=== PATIENT | male | born 1950 | race African-American/Black ===

== ENCOUNTER 2024-06-06 20:25 | Inpatient (IN) | payer OTHER, MEDICAID, MEDICARE ==
[~2024-06-06] VITALS: Ht 170.2 cm; Wt 57.2 kg
[2024-06-06] MEDS: SODIUM CHLORIDE 0.9% 1,000 ML IV ONE (20:49)
[2024-06-06 21:30] LABS: DIFFERENTIAL COMMENT 1; HEMOGLOBIN. 8.9 g/dL (14.0-18.0); MEAN CORPUSCULAR HEMOGLOBIN 25.4 pg (28.0-32.0); MEAN CORPUSCULAR HGB CONC 30.6 g/dL (31.0-37.0); MEAN PLATELET VOLUME 9.5 fl (7.4-10.4); PLATELET 493 x1000/uL (130-400); RED BLOOD CELL COUNT 3.49 mill/uL (4.7-6.1); RED CELL DISTRIBUTION WIDTH 19.4 % (11.6-14.6); WHITE BLOOD COUNT 20.4 x1000/uL (4.5-11.0)
[2024-06-06 21:37] LABS: CHLORIDE 104 mEq/L (98-107); SODIUM 138 mEq/L (136-145)
[2024-06-06 21:38] LABS: CALCIUM 9.5 mg/dL (8.7-10.4); CARBON DIOXIDE 18 mEq/L (21-32)
[2024-06-06 21:43] LABS: GLUCOSE 113 mg/dL (70-105); UREA NITROGEN BLOOD 75 mg/dL (9-23)
[2024-06-06 21:44] LABS: AMMONIA < 17 uMol/L (<32); ETHANOL BLOOD < 10 mg/dL (<10)
[2024-06-06] MEDS ORDERED: VANCOMYCIN 1G PREMIX 200 ML IV ONE (21:45)
[2024-06-06] MEDS: PIPERACILLIN/TAZO 3.375G/50ML 50 ML IV ONE (21:45)
[2024-06-06 21:51] LABS: POTASSIUM 6.5 mEq/L (3.5-5.1)
[2024-06-06 21:52] LABS: TROPONIN I HIGH SENSITIVITY 144 ng/L (3.0-53)
[2024-06-06 21:53] LABS: ANISOCYTOSIS 1+; PLATELET ESTIMATE INCREASED
[2024-06-06 21:56] LABS: CREATINE KINASE 1714 IU/L (46-171)
[2024-06-06] MEDS: DEXTROSE 50% WATER 50ML SYRINGE IV NR (22:00)
[2024-06-06 22:10] VITALS: PULSE 80; RESP 20; O2SAT 94
[2024-06-06] MEDS: ALBUTEROL (0.083%) 2.5MG/3ML NEB HHN SCH (22:35)
[2024-06-06] MEDS ORDERED: MORPHINE SULFATE 2 MG/ML INJ (NOT FOR IM USE) IV PRN (23:00)
[2024-06-06] MEDS ORDERED: CLONIDINE 0.1MG TABLET PO PRN (23:00)
[2024-06-06] MEDS ORDERED: ONDANSETRON HCL 4MG/2ML INJ IV PRN (23:00)
[2024-06-06 23:43] LABS: BG BASE EXCESS -5.2 mmol/L (-2.0-3.0); BG CARBOXYHEMOGLOBIN 1.5 % (0.5-1.5); BG DEOXYHEMOGLOBIN 6.2 % (0.0-5.0); BG FRACTION INSPIRED OXYGEN 21; BG HCO3 ACT 18.7 mmol/L (21.0-28.0); BG METHEMOGLOBIN 0.3 % (0.5-1.5); BG OXYGEN SATURATION 93.7 % (94.0-98.0); BG PCO2 30.1 mmHg (35.0-48.0); BG PO2 69.6 mmHg (83.0-108.0); BG SAMPLE SITE RIGHT RADIAL; BG TOTAL HEMOGLOBIN 8.6 g/dL (13.5-17.5); BG VENT MODE ROOM AIR
[2024-06-06] MEDS: SODIUM CHLORIDE 0.9% (SEPSIS BOLUS) IV ONE (23:55)
[2024-06-06] MEDS: CALCIUM GLUCONATE 1GM PREMIX 50 ML IV NR (23:55)
[2024-06-06] MEDS: INSULIN REGULAR (HUMULIN R) 1000UNITS/10ML VIAL IV NR (23:55)
[2024-06-06] MEDS: SODIUM BICARBONATE 8.4% 50MEQ/50ML SYR IV NR (23:56)
[2024-06-06] MEDS: VANCOMYCIN 1.25GM/250ML IV NR (23:56)
[2024-06-07 00:24] VITALS: BP 81/46; PULSE 82; RESP 24; TEMP 36.4
[2024-06-07 03:30] LABS: POTASSIUM 4.6 mEq/L (3.5-5.1)
[2024-06-07 03:32] LABS: CALCIUM 9.2 mg/dL (8.7-10.4)
[2024-06-07 03:35] LABS: HEMATOCRIT. 26.8 % (42.0-52.0); HEMOGLOBIN. 8.5 g/dL (14.0-18.0); MEAN CORPUSCULAR HEMOGLOBIN 25.1 pg (28.0-32.0); MEAN CORPUSCULAR HGB CONC 31.6 g/dL (31.0-37.0); MEAN CORPUSCULAR VOLUME 79.3 fL (80.0-94.0); MEAN PLATELET VOLUME 8.8 fl (7.4-10.4); PLATELET 370 x1000/uL (130-400); RED BLOOD CELL COUNT 3.38 mill/uL (4.7-6.1); RED CELL DISTRIBUTION WIDTH 18.3 % (11.6-14.6); WHITE BLOOD COUNT 15.8 x1000/uL (4.5-11.0)
[2024-06-07 03:36] LABS: CREATININE 4.5 mg/dL (0.6-1.3)
[2024-06-07 03:45] LABS: DIFFERENTIAL COMMENT 1
[2024-06-07 04:00] VITALS: BP 90/43; PULSE 82; RESP 19; TEMP 36.8; O2SAT 98
[2024-06-07 08:00] VITALS: BP 99/47; PULSE 87; RESP 18; TEMP 36.4; O2SAT 95
[2024-06-07] MEDS ORDERED: PANTOPRAZOLE SODIUM 40 MG/VIAL IV SCH (09:00)
[2024-06-07] MEDS: ASPIRIN 81MG EC TABLET PO SCH (09:50)
[2024-06-07] MEDS: PIPERACILLIN/TAZO 3.375G/50ML 50 ML IV SCH (09:50)
[2024-06-07] MEDS: HEPARIN 5000 UNITS/ML VIAL SUBCUT SCH (09:50)
[2024-06-07 09:53] LABS: BG CARBOXYHEMOGLOBIN 0.7 % (0.5-1.5); BG DEOXYHEMOGLOBIN 5.4 % (0.0-5.0); BG FRACTION INSPIRED OXYGEN 21; BG HCO3 ACT 17.9 mmol/L (21.0-28.0); BG METHEMOGLOBIN 0.3 % (0.5-1.5); BG OXYGEN SATURATION 94.5 % (94.0-98.0); BG OXYHEMOGLOBIN 93.6 % (94.0-98.0); BG PH 7.456 (7.350-7.450); BG PO2 70.4 mmHg (83.0-108.0); BG SAMPLE SITE LEFT RADIAL; BG VENT MODE ROOM AIR
[2024-06-07] MEDS: SODIUM CHLORIDE 0.9% 1,000 ML IV SCH (09:57)
[2024-06-07 11:12] LABS: ANISOCYTOSIS 2+; PLATELET ESTIMATE NORMAL
[2024-06-07 11:13] LABS: MICROCYTOSIS 1+
[2024-06-07 12:00] VITALS: BP 99/56; PULSE 89; RESP 18; TEMP 36.7; O2SAT 97
[2024-06-07 16:00] VITALS: BP 120/76; PULSE 89; RESP 18; TEMP 36.7; O2SAT 98
[2024-06-07 17:38] LABS: CLARITY URINE CLOUDY (CLEAR); COLOR URINE YELLOW (YELLOW); GLUCOSE URINE NEGATIVE (NEGATIVE); KETONES URINE TRACE (NEGATIVE); LEUKOCYTE ESTERASE URINE 2+ (NEGATIVE); NITRITE URINE NEGATIVE (NEGATIVE); OCCULT BLOOD URINE 3+ (NEGATIVE); PH URINE 5.5 (4.5-8.0); PROTEIN URINE 2+ (NEGATIVE); SPECIFIC GRAVITY URINE 1.017 (1.005-1.030); UROBILINOGEN URINE 0.2 E.U./dL (0.2-1.0)
[2024-06-07 17:42] LABS: TROPONIN I HIGH SENSITIVITY 130 ng/L (3.0-53)
[2024-06-07 17:43] LABS: CREATINE KINASE 1396 IU/L (46-171)
[2024-06-07 17:55] LABS: SQUAMOUS EPITHELIAL CELL URINE NONE SEEN /lpf (RARE/1+)
[2024-06-07 17:56] LABS: BACTERIA URINE 3+
[2024-06-07 20:00] VITALS: BP 118/55; PULSE 86; RESP 18; TEMP 36.6; O2SAT 100
[2024-06-08] VITALS: BP 116/59; PULSE 87; RESP 18; TEMP 36.4; O2SAT 95
[2024-06-08 03:58] VITALS: BP 96/58; PULSE 79; RESP 18; TEMP 36.2; O2SAT 97
[2024-06-08] MEDS: FAMOTIDINE 20MG/2ML VIAL IV SCH (09:50)
[2024-06-08 09:56] LABS: HEMATOCRIT. 22.6 % (42.0-52.0); HEMOGLOBIN. 7.1 g/dL (14.0-18.0); MEAN CORPUSCULAR HEMOGLOBIN 24.9 pg (28.0-32.0); MEAN CORPUSCULAR HGB CONC 31.5 g/dL (31.0-37.0); MEAN CORPUSCULAR VOLUME 79.2 fL (80.0-94.0); MEAN PLATELET VOLUME 9.1 fl (7.4-10.4); PLATELET 392 x1000/uL (130-400); RED BLOOD CELL COUNT 2.86 mill/uL (4.7-6.1); RED CELL DISTRIBUTION WIDTH 18.3 % (11.6-14.6); WHITE BLOOD COUNT 13.6 x1000/uL (4.5-11.0)
[2024-06-08 10:03] LABS: DIFFERENTIAL COMMENT 1
[2024-06-08 10:16] LABS: CHLORIDE 110 mEq/L (98-107); POTASSIUM 4.5 mEq/L (3.5-5.1); SODIUM 143 mEq/L (136-145)
[2024-06-08 10:17] LABS: CARBON DIOXIDE 22 mEq/L (21-32)
[2024-06-08 10:18] LABS: CALCIUM 7.7 mg/dL (8.7-10.4)
[2024-06-08 10:22] LABS: CREATININE 3.7 mg/dL (0.6-1.3); GLUCOSE 87 mg/dL (70-105)
[2024-06-08 10:23] LABS: UREA NITROGEN BLOOD 78 mg/dL (9-23)
[2024-06-08 10:25] LABS: PHOSPHORUS 3.1 mg/dL (2.5-4.9)
[2024-06-08 12:00] VITALS: BP 97/51; PULSE 51; RESP 16; TEMP 36.2; O2SAT 100
[2024-06-08 12:05] LABS: TOTAL IRON BINDING CAPACITY 598 ug/dl (250-425)
[2024-06-08] MEDS: VANCOMYCIN 1GM/200ML PMX (BAXTER) IV NR (12:38)
[2024-06-08 14:56] LABS: IRON 14 ug/dL (65-175)
[2024-06-08 15:24] LABS: ANISOCYTOSIS 1+
[2024-06-08 15:25] LABS: PLATELET ESTIMATE NORMAL
[2024-06-08 16:00] VITALS: BP 105/66; PULSE 58; RESP 16; TEMP 36.7; O2SAT 94
[2024-06-08 17:39] LABS: CREATINE KINASE 645 IU/L (46-171)
[2024-06-08 20:00] VITALS: BP 120/66; PULSE 85; RESP 20; TEMP 36.7; O2SAT 96
[2024-06-08] MEDS: TAMSULOSIN HCL 0.4MG SR CAPSULE PO SCH (21:47)
[2024-06-08 23:24] VITALS: PULSE 112; RESP 28; O2SAT 96
[2024-06-08 23:42] LABS: BG BASE EXCESS -4.2 mmol/L (-2.0-3.0); BG CARBOXYHEMOGLOBIN 0.8 % (0.5-1.5); BG DEOXYHEMOGLOBIN 1.9 % (0.0-5.0); BG FRACTION INSPIRED OXYGEN 44; BG HCO3 ACT 19.9 mmol/L (21.0-28.0); BG METHEMOGLOBIN 0.3 % (0.5-1.5); BG OXYGEN SATURATION 98.1 % (94.0-98.0); BG PCO2 32.5 mmHg (35.0-48.0); BG PH 7.405 (7.350-7.450); BG PO2 102.3 mmHg (83.0-108.0); BG SAMPLE SITE RIGHT RADIAL; BG TOTAL HEMOGLOBIN 8.8 g/dL (13.5-17.5); BG VENT MODE NASAL CANNULA
[2024-06-09] VITALS (12 sets, daily range): BP systolic 100–132; BP diastolic 60–89; PULSE 51–97; RESP 17–28; TEMP 35.8–36.9; O2SAT 95–100
[2024-06-09] MEDS: IPRATROPIUM/ALBUTEROL 0.5-3(2.5)MG/3ML NEB HHN SCH (00:52)
[2024-06-09 07:46] LABS: POTASSIUM 4.1 mEq/L (3.5-5.1)
[2024-06-09 07:47] LABS: CALCIUM 8.8 mg/dL (8.7-10.4)
[2024-06-09 07:52] LABS: CREATININE 3.5 mg/dL (0.6-1.3)
[2024-06-09 07:56] LABS: HEMATOCRIT. 24.6 % (42.0-52.0); MEAN CORPUSCULAR HEMOGLOBIN 25.4 pg (28.0-32.0); MEAN CORPUSCULAR HGB CONC 32.4 g/dL (31.0-37.0); MEAN CORPUSCULAR VOLUME 78.3 fL (80.0-94.0); PLATELET 412 x1000/uL (130-400); RED BLOOD CELL COUNT 3.14 mill/uL (4.7-6.1); RED CELL DISTRIBUTION WIDTH 18.5 % (11.6-14.6)
[2024-06-09 09:24] LABS: DIFFERENTIAL COMMENT 1
[2024-06-09] MEDS ORDERED: NON FORMULARY MED XX SCH (10:15)
[2024-06-09] MEDS: IRON SUCROSE COMPLEX 100 MG/5 ML ML IV SCH (12:28)
[2024-06-09] MEDS: SODIUM CHLORIDE 0.45% 1,000 ML IV SCH (12:32)
[2024-06-09 12:35] LABS: PROTEIN BODY FLUID 5.3 gm/dL
[2024-06-09] MEDS ORDERED: ACETAMINOPHEN 325MG TABLET PO PRN (13:45)
[2024-06-09 14:16] LABS: BODY FLUID WBC 6863 /cu mm (0-200)
[2024-06-09 14:17] LABS: BODY FLUID RBC 125 /cu mm (0-2000)
[2024-06-09 17:59] LABS: ANISOCYTOSIS 1+; MICROCYTOSIS 1+; PLATELET ESTIMATE INCREASED
[2024-06-09] MEDS ORDERED: BISACODYL 10MG SUPP PR PRN (21:00)
[2024-06-09] MEDS ORDERED: DIPHENHYDRAMINE 25MG CAPSULE PO PRN (21:00)
[2024-06-09] MEDS: ALLOPURINOL 300 MG TABLET PO SCH (21:08)
[2024-06-09] MEDS: DOCUSATE SODIUM 100MG CAPSULE PO SCH (21:08)
[2024-06-10] VITALS (75 sets, daily range): BP systolic 87–134; BP diastolic 40–82; PULSE 78–99; RESP 16–34; TEMP 34.7–37; O2SAT 94–100
[2024-06-10] MEDS: CHLORHEXIDINE GLUCONATE 4% EXTERNAL USE TOP SCH ×2 (05:06→07:00)
[2024-06-10] MEDS ORDERED: NICARDIPINE 40MG/200ML PREMIX 200 ML IV PRN (06:00)
[2024-06-10] MEDS ORDERED: AMINOCAPROIC ACID 5,000 MG in SODIUM CHLORIDE 0.9% 250 ML IV PRN (06:00)
[2024-06-10] MEDS ORDERED: INSULIN REGULAR 100 U/100 ML PREMIX IV PRN (06:00)
[2024-06-10] MEDS ORDERED: PAPAVERINE HCL 180MG in SODIUM CHLORIDE 0.9% 24ML IV NR (06:00)
[2024-06-10] MEDS ORDERED: CEFAZOLIN 2GM/100ML 100 ML IV NR (06:00)
[2024-06-10] MEDS ORDERED: NOREPINEPHRINE 8MG/250ML PMX 242 ML IV PRN (06:00)
[2024-06-10] MEDS ORDERED: DEL NIDO CARDIOPLEGIA 1,000 ML (PREMIX) IV PRN (06:00)
[2024-06-10] MEDS ORDERED: EPINEPHRINE 5 MG in DEXT 5% WATER 250 ML IV PRN (06:00)
[2024-06-10] MEDS ORDERED: DOBUTAMINE 250 MG/250 ML PREMIX IV PRN (06:00)
[2024-06-10] MEDS ORDERED: SKIN ADHESIVE 0.7 GM EA TOP ONE (06:52)
[2024-06-10] MEDS ORDERED: LIDOCAINE HCL/EPINEPHRINE 1%-EPI 1:100,000 20ML VIAL ONE (06:52)
[2024-06-10] MEDS ORDERED: BUPIVACAINE HCL/PF 0.5% (5MG/ML) 10ML ONE (06:52)
[2024-06-10] MEDS ORDERED: POLYMYXIN B SULFATE 500000 UNITS/VIAL ONE (06:52)
[2024-06-10 07:22] LABS: HEMATOCRIT. 23.2 % (42.0-52.0); HEMOGLOBIN. 7.4 g/dL (14.0-18.0); MEAN CORPUSCULAR HEMOGLOBIN 25.2 pg (28.0-32.0); MEAN CORPUSCULAR HGB CONC 31.8 g/dL (31.0-37.0); MEAN CORPUSCULAR VOLUME 79.2 fL (80.0-94.0); MEAN PLATELET VOLUME 8.7 fl (7.4-10.4); PLATELET 385 x1000/uL (130-400); RED BLOOD CELL COUNT 2.93 mill/uL (4.7-6.1); RED CELL DISTRIBUTION WIDTH 18.5 % (11.6-14.6); WHITE BLOOD COUNT 11.8 x1000/uL (4.5-11.0)
[2024-06-10 07:29] LABS: DIFFERENTIAL COMMENT 1
[2024-06-10] MEDS ORDERED: SUCCINYLCHOLINE CHLORIDE 200MG/10ML IV ONE (07:35)
[2024-06-10] MEDS ORDERED: ROCURONIUM BROMIDE 10MG/ML VIAL 5ML IV ONE (07:35)
[2024-06-10] MEDS ORDERED: DEXAMETHASONE 4MG/ML 1ML VIAL ONE (07:35)
[2024-06-10] MEDS ORDERED: PROPOFOL 200MG/20ML VIAL IV ONE (07:35)
[2024-06-10 07:57] LABS: CALCIUM 8.5 mg/dL (8.7-10.4)
[2024-06-10] MEDS ORDERED: ALBUMIN HUMAN 12.5G/250ML (5%) IV ONE (08:16)
[2024-06-10] MEDS ORDERED: SUGAMMADEX SODIUM 200MG/2ML VIAL IV ONE (08:21)
[2024-06-10] MEDS ORDERED: ACETAMINOPHEN 1000MG/100ML 100 ML IV ONE (08:21)
[2024-06-10] MEDS ORDERED: ALBUMIN HUMAN 25GM/100ML (25%) IV PRN (08:45)
[2024-06-10] MEDS ORDERED: ALBUMIN HUMAN 12.5G/250ML (5%) IV PRN (08:45)
[2024-06-10] MEDS ORDERED: ACETAMINOPHEN 325MG TABLET PO PRN (08:45)
[2024-06-10] MEDS ORDERED: ONDANSETRON HCL 4MG/2ML INJ IV PRN (08:45)
[2024-06-10 09:47] LABS: BG BASE EXCESS -7.2 mmol/L (-2.0-3.0); BG CARBOXYHEMOGLOBIN 1.7 % (0.5-1.5); BG DEOXYHEMOGLOBIN 1.2 % (0.0-5.0); BG FRACTION INSPIRED OXYGEN 70; BG HCO3 ACT 18.5 mmol/L (21.0-28.0); BG OXYGEN SATURATION 98.8 % (94.0-98.0); BG OXYHEMOGLOBIN 97.1 % (94.0-98.0); BG PCO2 38.1 mmHg (35.0-48.0); BG PH 7.305 (7.350-7.450); BG PO2 120.2 mmHg (83.0-108.0); BG SAMPLE SITE RIGHT BRACHIAL; BG TOTAL HEMOGLOBIN 7.1 g/dL (13.5-17.5); BG VENT MODE MASK - SIMPLE
[2024-06-10] MEDS: FAMOTIDINE 20MG/2ML VIAL IV SCH (10:10)
[2024-06-10] MEDS: DOCUSATE SODIUM 100MG CAPSULE PO SCH (10:11)
[2024-06-10] MEDS: CEFAZOLIN 1000MG PREMIX 50 ML IV SCH (10:50)
[2024-06-10 11:25] LABS: BODY FLUID MONOCYTES 1 %; BODY FLUID RBC 485 /cu mm (0-2000); BODY FLUID WBC 4975 /cu mm (0-200)
[2024-06-10] MEDS: IPRATROPIUM/ALBUTEROL 0.5-3(2.5)MG/3ML NEB HHN SCH (12:01)
[2024-06-10] MEDS ORDERED: NALOXONE HCL 0.4MG/ML VIAL IV PRN (13:15)
[2024-06-10] MEDS: VANCOMYCIN 1GM/200ML PMX (BAXTER) IV NR (13:33)
[2024-06-10 14:28] LABS: NUCLEATED RED BLOOD CELLS 1 /100 WBC
[2024-06-10 14:29] LABS: ANISOCYTOSIS 2+; MICROCYTOSIS 1+; PLATELET ESTIMATE NORMAL
[2024-06-11] VITALS (94 sets, daily range): BP systolic 110–158; BP diastolic 55–111; PULSE 72–97; RESP 14–35; TEMP 36.4–37; O2SAT 91–100
[2024-06-11 06:18] LABS: MEAN CORPUSCULAR HEMOGLOBIN 24.6 pg (28.0-32.0); MEAN CORPUSCULAR HGB CONC 30.9 g/dL (31.0-37.0); MEAN CORPUSCULAR VOLUME 79.6 fL (80.0-94.0); MEAN PLATELET VOLUME 8.5 fl (7.4-10.4); PLATELET 404 x1000/uL (130-400); RED BLOOD CELL COUNT 2.62 mill/uL (4.7-6.1); RED CELL DISTRIBUTION WIDTH 18.8 % (11.6-14.6)
[2024-06-11 06:45] LABS: CARBON DIOXIDE 22 mEq/L (21-32); CHLORIDE 110 mEq/L (98-107); POTASSIUM 4.4 mEq/L (3.5-5.1); SODIUM 144 mEq/L (136-145)
[2024-06-11 06:46] LABS: CALCIUM 8.6 mg/dL (8.7-10.4)
[2024-06-11 06:51] LABS: CREATININE 2.8 mg/dL (0.6-1.3); GLUCOSE 129 mg/dL (70-105); UREA NITROGEN BLOOD 51 mg/dL (9-23)
[2024-06-11 07:29] LABS: DIFFERENTIAL COMMENT 1
[2024-06-11 07:33] LABS: HEMOGLOBIN. 6.4 g/dL (14.0-18.0)
[2024-06-11 07:34] LABS: HEMATOCRIT. 20.8 % (42.0-52.0)
[2024-06-11 11:45] LABS: ANISOCYTOSIS 2+; HYPOCHROMASIA 1+; MICROCYTOSIS 1+; PLATELET ESTIMATE SLIGHTLY INCREASED; TARGET CELLS 1+
[2024-06-11] MEDS: MAGNESIUM 2 G PREMIX 50 ML IV NR (13:17)
[2024-06-11] MEDS: FUROSEMIDE 100MG/10ML VIAL IVP NR (18:35)
[2024-06-12] VITALS (7 sets, daily range): BP systolic 132–162; BP diastolic 73–99; PULSE 79–93; RESP 16–29; TEMP 36.4–36.7; O2SAT 90–97
[2024-06-12] MEDS: FUROSEMIDE 100MG/10ML VIAL IVP NR (09:36)
[2024-06-12 09:43] LABS: HEMATOCRIT. 30.5 % (42.0-52.0); HEMOGLOBIN. 10.1 g/dL (14.0-18.0); MEAN CORPUSCULAR HEMOGLOBIN 26.3 pg (28.0-32.0); MEAN CORPUSCULAR HGB CONC 32.9 g/dL (31.0-37.0); MEAN PLATELET VOLUME 8.2 fl (7.4-10.4); PLATELET 480 x1000/uL (130-400); RED BLOOD CELL COUNT 3.82 mill/uL (4.7-6.1); RED CELL DISTRIBUTION WIDTH 19.1 % (11.6-14.6); WHITE BLOOD COUNT 12.2 x1000/uL (4.5-11.0)
[2024-06-12 09:44] LABS: DIFFERENTIAL COMMENT 1
[2024-06-12 10:02] LABS: CHLORIDE 108 mEq/L (98-107); POTASSIUM 3.7 mEq/L (3.5-5.1); SODIUM 141 mEq/L (136-145)
[2024-06-12 10:03] LABS: CALCIUM 8.7 mg/dL (8.7-10.4); CARBON DIOXIDE 22 mEq/L (21-32)
[2024-06-12 10:08] LABS: CREATININE 2.5 mg/dL (0.6-1.3); GLUCOSE 76 mg/dL (70-105); UREA NITROGEN BLOOD 43 mg/dL (9-23)
[2024-06-12 10:10] LABS: PHOSPHORUS 3.3 mg/dL (2.5-4.9)
[2024-06-12 12:24] LABS: NUCLEATED RED BLOOD CELLS 1 /100 WBC
[2024-06-12 12:25] LABS: ANISOCYTOSIS 2+; HYPOCHROMASIA 1+; PLATELET ESTIMATE INCREASED
[2024-06-12] MEDS ORDERED: LORAZEPAM 2MG/ML UD SYRINGE IV PRN (21:30)
[2024-06-13] VITALS (11 sets, daily range): BP systolic 110–146; BP diastolic 63–80; PULSE 87–95; RESP 18–23; TEMP 36.1–36.4; O2SAT 94–99
[2024-06-13 07:01] LABS: HEMATOCRIT. 35.4 % (42.0-52.0); HEMOGLOBIN. 11.5 g/dL (14.0-18.0); MEAN CORPUSCULAR HEMOGLOBIN 26.4 pg (28.0-32.0); MEAN CORPUSCULAR HGB CONC 32.6 g/dL (31.0-37.0); MEAN CORPUSCULAR VOLUME 80.9 fL (80.0-94.0); MEAN PLATELET VOLUME 7.8 fl (7.4-10.4); PLATELET 555 x1000/uL (130-400); RED BLOOD CELL COUNT 4.38 mill/uL (4.7-6.1); WHITE BLOOD COUNT 12.8 x1000/uL (4.5-11.0)
[2024-06-13 07:08] LABS: DIFFERENTIAL COMMENT 1
[2024-06-13 07:11] LABS: CARBON DIOXIDE 26 mEq/L (21-32); CHLORIDE 104 mEq/L (98-107); POTASSIUM 3.6 mEq/L (3.5-5.1); SODIUM 143 mEq/L (136-145)
[2024-06-13 07:12] LABS: CALCIUM 9.2 mg/dL (8.7-10.4)
[2024-06-13 07:17] LABS: CREATININE 2.6 mg/dL (0.6-1.3); GLUCOSE 77 mg/dL (70-105); UREA NITROGEN BLOOD 45 mg/dL (9-23)
[2024-06-13] MEDS: DEXT 5%/0.45% NACL 1000ML 1,000 ML IV SCH (12:30)
[2024-06-13 14:50] LABS: PLATELET ESTIMATE INCREASED
[2024-06-13 14:51] LABS: ANISOCYTOSIS 2+; HYPOCHROMASIA 1+
[2024-06-13] MEDS: ACETYLCYSTEINE 200MG/ML 20% VIAL 4ML INH SCH (23:44)
[2024-06-14] VITALS (9 sets, daily range): BP systolic 102–128; BP diastolic 61–76; PULSE 85–95; RESP 16–26; TEMP 36.3–37.2; O2SAT 93–98
[2024-06-14 13:00] LABS: HEMATOCRIT. 37.2 % (42.0-52.0); MEAN CORPUSCULAR HEMOGLOBIN 26.3 pg (28.0-32.0); MEAN CORPUSCULAR HGB CONC 32.1 g/dL (31.0-37.0); MEAN CORPUSCULAR VOLUME 81.8 fL (80.0-94.0); MEAN PLATELET VOLUME 7.8 fl (7.4-10.4); PLATELET 555 x1000/uL (130-400); RED BLOOD CELL COUNT 4.55 mill/uL (4.7-6.1); RED CELL DISTRIBUTION WIDTH 19.7 % (11.6-14.6); WHITE BLOOD COUNT 19.4 x1000/uL (4.5-11.0)
[2024-06-14 13:01] LABS: DIFFERENTIAL COMMENT 1
[2024-06-14 13:06] LABS: POTASSIUM 3.6 mEq/L (3.5-5.1)
[2024-06-14 13:12] LABS: CREATININE 2.2 mg/dL (0.6-1.3)
[2024-06-14] MEDS ORDERED: GUAIFENESIN-DM 200MG-20MG/10ML UDC PO PRN (14:30)
[2024-06-14] MEDS: ACETAMINOPHEN 325MG TABLET PO PRN (15:20)
[2024-06-14] MEDS ORDERED: CEFTRIAXONE 1GM/50ML 50 ML IV SCH (16:00)
[2024-06-14 16:25] LABS: ANISOCYTOSIS 1+; PLATELET ESTIMATE INCREASED
[2024-06-14] MEDS: PIPERACILLIN/TAZO 3.375G/50ML 50 ML IV SCH (21:04)
[2024-06-14] MEDS: VANCOMYCIN 1.5GM PMX (XELLIA) 300 ML IV NR (21:33)
[2024-06-15] VITALS (9 sets, daily range): BP systolic 102–123; BP diastolic 54–69; PULSE 80–95; RESP 18–27; TEMP 36.3–36.7; O2SAT 91–100
[2024-06-15 10:54] LABS: HEMATOCRIT. 33.9 % (42.0-52.0); HEMOGLOBIN. 10.5 g/dL (14.0-18.0); MEAN CORPUSCULAR HEMOGLOBIN 25.9 pg (28.0-32.0); MEAN CORPUSCULAR HGB CONC 31.1 g/dL (31.0-37.0); MEAN CORPUSCULAR VOLUME 83.3 fL (80.0-94.0); MEAN PLATELET VOLUME 7.9 fl (7.4-10.4); PLATELET 548 x1000/uL (130-400); RED BLOOD CELL COUNT 4.07 mill/uL (4.7-6.1); RED CELL DISTRIBUTION WIDTH 19.7 % (11.6-14.6); WHITE BLOOD COUNT 24.8 x1000/uL (4.5-11.0)
[2024-06-15 11:16] LABS: DIFFERENTIAL COMMENT 1
[2024-06-15 11:27] LABS: POTASSIUM 3.8 mEq/L (3.5-5.1)
[2024-06-15 11:28] LABS: CALCIUM 8.7 mg/dL (8.7-10.4)
[2024-06-15 11:33] LABS: CREATININE 2.2 mg/dL (0.6-1.3)
[2024-06-15] MEDS: FUROSEMIDE 100MG/10ML VIAL IVP NR (12:25)
[2024-06-15 13:28] LABS: ANISOCYTOSIS 2+; PLATELET ESTIMATE INCREASED
[2024-06-15] MEDS ORDERED: VANCOMYCIN 750MG PREMIX 150 ML IV SCH (21:00)
[2024-06-16] VITALS (9 sets, daily range): BP systolic 87–105; BP diastolic 47–70; PULSE 69–92; RESP 16–28; TEMP 36.1–37.1; O2SAT 96–100
[2024-06-16 07:07] LABS: HEMATOCRIT. 31.8 % (42.0-52.0); HEMOGLOBIN. 10.3 g/dL (14.0-18.0); MEAN CORPUSCULAR HEMOGLOBIN 26.3 pg (28.0-32.0); MEAN CORPUSCULAR HGB CONC 32.5 g/dL (31.0-37.0); MEAN CORPUSCULAR VOLUME 81.1 fL (80.0-94.0); MEAN PLATELET VOLUME 7.7 fl (7.4-10.4); PLATELET 531 x1000/uL (130-400); RED BLOOD CELL COUNT 3.92 mill/uL (4.7-6.1); RED CELL DISTRIBUTION WIDTH 19.9 % (11.6-14.6); WHITE BLOOD COUNT 20.3 x1000/uL (4.5-11.0)
[2024-06-16 07:23] LABS: POTASSIUM 4.1 mEq/L (3.5-5.1)
[2024-06-16 07:24] LABS: CALCIUM 8.9 mg/dL (8.7-10.4)
[2024-06-16 07:29] LABS: CREATININE 2.4 mg/dL (0.6-1.3)
[2024-06-16 09:01] LABS: DIFFERENTIAL COMMENT 1
[2024-06-16] MEDS: IPRATROPIUM/ALBUTEROL 0.5-3(2.5)MG/3ML NEB HHN SCH (12:31)
[2024-06-16 16:32] LABS: ANISOCYTOSIS 1+; PLATELET ESTIMATE INCREASED
[2024-06-16] MEDS: MIDODRINE HCL 5MG TABLET PO SCH (23:13)
[2024-06-17] VITALS (10 sets, daily range): BP systolic 94–112; BP diastolic 50–77; PULSE 80–93; RESP 15–32; TEMP 36.6–37.3; O2SAT 94–100
[2024-06-17 06:56] LABS: HEMATOCRIT. 28.4 % (42.0-52.0); HEMOGLOBIN. 9.2 g/dL (14.0-18.0); MEAN CORPUSCULAR HEMOGLOBIN 26.5 pg (28.0-32.0); MEAN CORPUSCULAR HGB CONC 32.4 g/dL (31.0-37.0); MEAN CORPUSCULAR VOLUME 81.6 fL (80.0-94.0); MEAN PLATELET VOLUME 7.7 fl (7.4-10.4); PLATELET 487 x1000/uL (130-400); RED BLOOD CELL COUNT 3.48 mill/uL (4.7-6.1); RED CELL DISTRIBUTION WIDTH 20.2 % (11.6-14.6)
[2024-06-17 07:02] LABS: POTASSIUM 4.3 mEq/L (3.5-5.1)
[2024-06-17 07:03] LABS: CALCIUM 8.7 mg/dL (8.7-10.4)
[2024-06-17 07:07] LABS: CREATININE 2.5 mg/dL (0.6-1.3)
[2024-06-17 07:18] LABS: DIFFERENTIAL COMMENT 1
[2024-06-17 13:24] LABS: PLATELET ESTIMATE INCREASED
[2024-06-17 13:25] LABS: ANISOCYTOSIS 1+
[2024-06-17] MEDS: VANCOMYCIN 750MG PMX (XELLIA) 150 ML IV SCH (20:13)
[2024-06-18] VITALS (11 sets, daily range): BP systolic 89–111; BP diastolic 49–63; PULSE 80–95; RESP 16–21; TEMP 36.4–37.1; O2SAT 94–100
[2024-06-18 06:51] LABS: POTASSIUM 4.4 mEq/L (3.5-5.1)
[2024-06-18 06:52] LABS: CALCIUM 8.5 mg/dL (8.7-10.4)
[2024-06-18 06:53] LABS: HEMATOCRIT. 26.3 % (42.0-52.0); HEMOGLOBIN. 8.5 g/dL (14.0-18.0); MEAN CORPUSCULAR HEMOGLOBIN 26.5 pg (28.0-32.0); MEAN CORPUSCULAR HGB CONC 32.4 g/dL (31.0-37.0); MEAN CORPUSCULAR VOLUME 81.9 fL (80.0-94.0); MEAN PLATELET VOLUME 7.5 fl (7.4-10.4); PLATELET 462 x1000/uL (130-400); RED BLOOD CELL COUNT 3.21 mill/uL (4.7-6.1); RED CELL DISTRIBUTION WIDTH 20.1 % (11.6-14.6); WHITE BLOOD COUNT 15.8 x1000/uL (4.5-11.0)
[2024-06-18 06:56] LABS: CREATININE 2.4 mg/dL (0.6-1.3)
[2024-06-18 07:23] LABS: DIFFERENTIAL COMMENT 1
[2024-06-18 15:05] LABS: ANISOCYTOSIS 2+; HYPOCHROMASIA 1+; PLATELET ESTIMATE INCREASED
[2024-06-19] VITALS (9 sets, daily range): BP systolic 90–113; BP diastolic 57–68; PULSE 73–91; RESP 18–23; TEMP 36.1–36.7; O2SAT 97–100
[2024-06-19 08:07] LABS: POTASSIUM 4.9 mEq/L (3.5-5.1)
[2024-06-19 08:13] LABS: CREATININE 2.6 mg/dL (0.6-1.3)
== END 2024-06-19 18:43 | DRG 853 ==
LOC: ER 20:25 → 7WST 21:47 → EDBEDREQ 21:52 → EDBEDREQTM 21:52 → CVICU 06-10 09:06 → 3WST 06-11 23:26
PROVIDERS: ADMIT Internal Medicine; ATTEND Internal Medicine
PROC: 0W9B30Z Drainage of Left Pleural Cavity with Drainage Device, Percutaneous Approach (ICD-10-PCS; 2024-06-09)
PROC: 0BNL4ZZ Release Left Lung, Percutaneous Endoscopic Approach (ICD-10-PCS; principal; 2024-06-10)
PROC: 30233N1 Transfusion of Nonautologous Red Blood Cells into Peripheral Vein, Percutaneous Approach (ICD-10-PCS; 2024-06-11)
DX: A41.9 Sepsis, unspecified organism (principal); G93.41 Metabolic encephalopathy; J18.9 Pneumonia, unspecified organism; N17.0 Acute kidney failure with tubular necrosis; I21.4 Non-ST elevation (NSTEMI) myocardial infarction; J86.9 Pyothorax without fistula; N39.0 Urinary tract infection, site not specified; M62.82 Rhabdomyolysis; E87.20 Acidosis, unspecified; N13.8 Other obstructive and reflux uropathy; J91.8 Pleural effusion in other conditions classified elsewhere; E87.5 Hyperkalemia; E86.9 Volume depletion, unspecified; D50.9 Iron deficiency anemia, unspecified; N40.1 Benign prostatic hyperplasia with lower urinary tract symptoms; R80.9 Proteinuria, unspecified; E11.22 Type 2 diabetes mellitus with diabetic chronic kidney disease; N18.9 Chronic kidney disease, unspecified; Z55.6 Problems related to health literacy
CPT/HCPCS: 31720; 32555; 36415; 36600; 71045; 71250; 76604; 76770; 80048; 80202; 80320; 81003; 82140; 82375; 82550; 82728; 82805; 82962; 83540; 83550; 83605; 83615; 83735; 84100; 84145; 84153; 84484; 85025; 86850; 86900; 86920; 87070; 87075; 87116; 87210; 88108; 88312; 93005; 93306; 94070; 94640; 94664; 94667; 94760; 97116; 97161; 97166; 97530; 98960; 99291; A4606; J0330; J0610; J0665; J0690; J0696; J1100; J1644; J1815; J1940; J2004; J2543; J2704; J3370; J3475; J3490; J7030; J7608; P9016; P9041; G0480; J0131

== ENCOUNTER 2024-12-30 14:56 | Inpatient (IN) | payer OTHER, MEDICAID ==
[~2024-12-30] VITALS: Ht 175.3 cm; Wt 89.8 kg
[2024-12-30] MEDS: SODIUM CHLORIDE 0.9% 1,000 ML IV ONE ×2 (16:06→23:38)
[2024-12-30 16:14] LABS: HEMATOCRIT. 35.5 % (42.0-52.0); HEMOGLOBIN. 11.3 g/dL (14.0-18.0); MEAN PLATELET VOLUME 9.5 fl (7.4-10.4); PLATELET 184 x1000/uL (130-400); RED BLOOD CELL COUNT 4.03 mill/uL (4.7-6.1); RED CELL DISTRIBUTION WIDTH 18.7 % (11.6-14.6)
[2024-12-30 16:28] LABS: UREA NITROGEN BLOOD 40 mg/dL (9-23)
[2024-12-30 16:29] LABS: ETHANOL BLOOD < 10 mg/dL (<10)
[2024-12-30 16:30] LABS: ASPARTATE AMINOTRANSFERASE 52 IU/L (<34); BILIRUBIN DIRECT 0.2 mg/dL (<=3.0)
[2024-12-30 16:31] LABS: BILIRUBIN TOTAL 0.5 mg/dL (0.1-1.0); PROTEIN TOTAL 7.8 g/dL (6.0-8.3)
[2024-12-30 16:37] LABS: CREATININE 1.8 mg/dL (0.6-1.3)
[2024-12-30] MEDS: CEFTRIAXONE 1GM/50ML 50 ML IV SCH (16:52)
[2024-12-30] MEDS: SODIUM CHLORIDE 0.9% (SEPSIS BOLUS) IV ONE (16:53)
[2024-12-30 17:45] LABS: BAND% 9.0 % (1.0-6.0); LYMPHOCYTES % MANUAL 2.0 % (20.0-50.0); MONOCYTES % MANUAL 1.0 % (2.0-8.0); NEUTROPHILS % MANUAL 88.0 % (45.0-75.0)
[2024-12-30 17:46] LABS: PLATELET ESTIMATE NORMAL
[2024-12-30 19:15] LABS: CLARITY URINE CLEAR (CLEAR); COLOR URINE YELLOW (YELLOW); GLUCOSE URINE NEGATIVE (NEGATIVE); KETONES URINE TRACE (NEGATIVE); LEUKOCYTE ESTERASE URINE 2+ (NEGATIVE); NITRITE URINE NEGATIVE (NEGATIVE); OCCULT BLOOD URINE 3+ (NEGATIVE); PH URINE 6.0 (4.5-8.0); PROTEIN URINE 1+ (NEGATIVE); SPECIFIC GRAVITY URINE 1.019 (1.005-1.030); UROBILINOGEN URINE 1.0 E.U./dL (0.2-1.0)
[2024-12-30 19:42] LABS: BACTERIA URINE 2+; SQUAMOUS EPITHELIAL CELL URINE RARE /lpf (RARE/1+)
[2024-12-30 19:43] LABS: RBC URINE TNTC /hpf (0-2)
[2024-12-30] MEDS ORDERED: ZOLPIDEM TARTRATE 5MG TABLET PO PRN (22:30)
[2024-12-30] MEDS ORDERED: CLONIDINE 0.1MG TABLET PO PRN (22:30)
[2024-12-30] MEDS ORDERED: MAGNESIUM/ALUMINUM HYDROXIDE/SIMETHICONE 30ML UDC PO PRN (22:30)
[2024-12-30] MEDS ORDERED: ONDANSETRON HCL 4MG/2ML INJ IV PRN (22:30)
[2024-12-30] MEDS ORDERED: HYDROCODONE/ACETAMINOPHEN 5/325MG TABLET PO PRN (22:30)
[2024-12-30] MEDS: MEROPENEM 1G/100ML 100 ML IV NR (23:00)
[2024-12-31] VITALS (99 sets, daily range): BP systolic 46–166; BP diastolic 38–108; PULSE 47–122; RESP 8–43; TEMP 28.1–36.696; O2SAT 91–100
[2024-12-31] MEDS: DEXT 5%/0.45% NACL 1000ML 1,000 ML IV SCH (01:35)
[2024-12-31 02:08] LABS: BG BASE EXCESS -3.6 mmol/L (-2.0-3.0); BG CARBOXYHEMOGLOBIN 0.0 % (0.5-1.5); BG DEOXYHEMOGLOBIN 7.1 % (0.0-5.0); BG FRACTION INSPIRED OXYGEN 100; BG HCO3 ACT 23.9 mmol/L (21.0-28.0); BG METHEMOGLOBIN 0.3 % (0.5-1.5); BG OXYGEN SATURATION 92.9 % (94.0-98.0); BG OXYHEMOGLOBIN 92.6 % (94.0-98.0); BG PCO2 55.2 mmHg (35.0-48.0); BG PH 7.255 (7.350-7.450); BG PO2 74.1 mmHg (83.0-108.0); BG SAMPLE SITE LEFT RADIAL; BG TOTAL HEMOGLOBIN 11.0 g/dL (13.5-17.5); BG VENT MODE MASK - BIPAP; BG VENT RATE 14.0 set
[2024-12-31] MEDS: HALOPERIDOL LACTATE 5MG/ML VIAL IM NR (03:12)
[2024-12-31 07:21] LABS: HEMATOCRIT. 32.8 % (42.0-52.0); HEMOGLOBIN. 10.3 g/dL (14.0-18.0); MEAN PLATELET VOLUME 9.7 fl (7.4-10.4); PLATELET 159 x1000/uL (130-400); RED BLOOD CELL COUNT 3.65 mill/uL (4.7-6.1); RED CELL DISTRIBUTION WIDTH 19.2 % (11.6-14.6)
[2024-12-31 07:33] LABS: CREATININE 1.5 mg/dL (0.6-1.3); UREA NITROGEN BLOOD 37.0 mg/dL (9-23)
[2024-12-31] MEDS ORDERED: NOREPINEPHRINE 8MG/250ML PMX 250 ML IV PRN (08:00)
[2024-12-31 08:16] LABS: *AMPHETAMINES SCREEN URINE NEGATIVE (NEGATIVE); *BARBITURATES SCREEN URINE NEGATIVE (NEGATIVE); *BENZODIAZEPINES SCREEN URINE NEGATIVE (NEGATIVE)
[2024-12-31 08:17] LABS: *COCAINE SCREEN URINE PRESUMPTIVE POSITIVE (NEGATIVE); CANNABINOID URINE SCREEN NEGATIVE (NEGATIVE); ECSTASY MDMA SCREEN URINE NEGATIVE (NEGATIVE); METHADONE URINE SCREEN NEGATIVE (NEGATIVE); OPIATES URINE SCREEN NEGATIVE (NEGATIVE); PHENCYCLIDINE URINE SCREEN NEGATIVE (NEGATIVE)
[2024-12-31] MEDS ORDERED: NALOXONE HCL 0.4MG/ML VIAL IV PRN (08:30)
[2024-12-31] MEDS: NOREPINEPHRINE 8MG/250ML PMX 250 ML IV PRN (08:35)
[2024-12-31] MEDS ORDERED: ENOXAPARIN 30MG/0.3ML SYR SUBCUT SCH (09:00)
[2024-12-31 09:07] LABS: BG BASE EXCESS -6.0 mmol/L (-2.0-3.0); BG CARBOXYHEMOGLOBIN 0.6 % (0.5-1.5); BG DEOXYHEMOGLOBIN 15.4 % (0.0-5.0); BG FRACTION INSPIRED OXYGEN 100; BG HCO3 ACT 22.8 mmol/L (21.0-28.0); BG METHEMOGLOBIN 0.0 % (0.5-1.5); BG OXYGEN SATURATION 84.5 % (94.0-98.0); BG OXYHEMOGLOBIN 84.0 % (94.0-98.0); BG PCO2 60.9 mmHg (35.0-48.0); BG PH 7.191 (7.350-7.450); BG PO2 56.2 mmHg (83.0-108.0); BG SAMPLE SITE RIGHT BRACHIAL; BG TOTAL HEMOGLOBIN 12.2 g/dL (13.5-17.5); BG VENT MODE MASK - BIPAP; BG VENT RATE 20.0 set
[2024-12-31 09:30] LABS: BAND% 16.0 % (1.0-6.0); LYMPHOCYTES % MANUAL 3.0 % (20.0-50.0); NEUTROPHILS % MANUAL 81.0 % (45.0-75.0); PLATELET ESTIMATE NORMAL
[2024-12-31 10:05] LABS: TROPONIN I HIGH SENSITIVITY 7 ng/L (3.0-53)
[2024-12-31 11:28] LABS: BG BASE EXCESS -6.1 mmol/L (-2.0-3.0); BG CARBOXYHEMOGLOBIN 0.3 % (0.5-1.5); BG DEOXYHEMOGLOBIN 12.2 % (0.0-5.0); BG FRACTION INSPIRED OXYGEN 100; BG HCO3 ACT 19.3 mmol/L (21.0-28.0); BG METHEMOGLOBIN 0.3 % (0.5-1.5); BG OXYGEN SATURATION 87.7 % (94.0-98.0); BG OXYHEMOGLOBIN 87.2 % (94.0-98.0); BG PCO2 37.9 mmHg (35.0-48.0); BG PEEP (cmH2O) 5.0 cmH2O; BG PH 7.325 (7.350-7.450); BG PO2 55.7 mmHg (83.0-108.0); BG SAMPLE SITE RIGHT BRACHIAL; BG TIDAL VOLUME(mL) 450.0 mL; BG TOTAL HEMOGLOBIN 10.7 g/dL (13.5-17.5); BG VENT MODE VENT - AC; BG VENT RATE 20.0 set
[2024-12-31] MEDS: MEROPENEM 500MG/50ML 50 ML IV SCH (11:33)
[2024-12-31] MEDS: PANTOPRAZOLE SODIUM 40 MG/VIAL IV SCH (11:33)
[2024-12-31 12:14] LABS: CLARITY URINE CLOUDY (CLEAR); COLOR URINE ORANGE (YELLOW); GLUCOSE URINE NEGATIVE (NEGATIVE); KETONES URINE NEGATIVE (NEGATIVE); LEUKOCYTE ESTERASE URINE 3+ (NEGATIVE); NITRITE URINE NEGATIVE (NEGATIVE); OCCULT BLOOD URINE 3+ (NEGATIVE); PH URINE 5.5 (4.5-8.0); PROTEIN URINE 2+ (NEGATIVE); SPECIFIC GRAVITY URINE 1.018 (1.005-1.030); UROBILINOGEN URINE 1.0 E.U./dL (0.2-1.0)
[2024-12-31] MEDS: DEXTROSE 5% WATER 1,000 ML IV SCH (12:18)
[2024-12-31] MEDS: BLOOD SUGAR DIAGNOSTIC STRIP TEST SCH ×2 (12:50→23:51)
[2024-12-31 13:44] LABS: SQUAMOUS EPITHELIAL CELL URINE FEW /lpf (RARE/1+)
[2024-12-31 13:46] LABS: WBC URINE 50-100 /hpf (0-2)
[2024-12-31 13:47] LABS: BACTERIA URINE 3+; RBC URINE TNTC /hpf (0-2); YEAST URINE NONE SEEN
[2024-12-31] MEDS: ENOXAPARIN 60MG/0.6ML SYR SUBCUT SCH (14:25)
[2024-12-31] MEDS: INSULIN LISPRO 100 UNITS/ML SUBCUT SCH (14:29)
[2024-12-31] MEDS: DEXTROSE 50% WATER 50ML SYRINGE IV PRN (20:36)
[2024-12-31] MEDS: DEXMEDETOMIDINE 100 ML IV PRN (20:37)
[2024-12-31] MEDS: PHENYLEPHRINE 50MG/250ML PMX 250 ML IV PRN (20:38)
[2024-12-31] MEDS: LEVETIRACETAM 1000MG PREMIX 100 ML IV SCH (22:28)
[2024-12-31 22:37] LABS: TROPONIN I HIGH SENSITIVITY 86 ng/L (3.0-53)
[2024-12-31] MEDS: DEXT 10% WATER 1,000 ML IV SCH (23:06)
[2025-01-01] VITALS (102 sets, daily range): BP systolic 73–167; BP diastolic 48–95; PULSE 54–115; RESP 17–34; TEMP 36.6; O2SAT 92–100
[2025-01-01] MEDS: HYDROCORTISONE SOD SUCCINATE 100 MG/2 ML VIAL IV SCH (00:51)
[2025-01-01] MEDS: BLOOD SUGAR DIAGNOSTIC STRIP TEST SCH ×2 (02:06→20:00)
[2025-01-01] MEDS: VASOPRESSIN 20 UNIT in SODIUM CHLORIDE 0.9% 99 ML IV PRN (04:35)
[2025-01-01 05:24] LABS: INR 1.4
[2025-01-01 05:36] LABS: TRIGLYCERIDE 32 mg/dL (0-150); UREA NITROGEN BLOOD 37 mg/dL (9-23)
[2025-01-01 05:37] LABS: ASPARTATE AMINOTRANSFERASE 827 IU/L (<34); LDL CHOLESTEROL 33 mg/dL (5-100)
[2025-01-01 05:38] LABS: FOLIC ACID (FOLATE) SERUM 4.65 ng/mL (>5.38)
[2025-01-01 05:38] LABS: BILIRUBIN DIRECT 0.2 mg/dL (<=3.0); BILIRUBIN TOTAL 0.4 mg/dL (0.1-1.0); PHOSPHORUS 2.8 mg/dL (2.5-4.9); PROTEIN TOTAL 6.1 g/dL (6.0-8.3)
[2025-01-01 05:39] LABS: CREATININE 2.2 mg/dL (0.6-1.3)
[2025-01-01 06:04] LABS: BASOPHILS % 0.1 % (0.0-2.0); EOSINOPHILS % 0.1 % (0.0-5.0); HEMATOCRIT. 32.2 % (42.0-52.0); HEMOGLOBIN. 10.1 g/dL (14.0-18.0); LYMPHOCYTES % 1.4 % (20.0-50.0); MEAN PLATELET VOLUME 10.6 fl (7.4-10.4); MONOCYTES % 1.5 % (2.0-8.0); NEUTROPHILS % 96.9 % (40.0-76.0); PLATELET 146 x1000/uL (130-400); RED BLOOD CELL COUNT 3.58 mill/uL (4.7-6.1); RED CELL DISTRIBUTION WIDTH 19.1 % (11.6-14.6)
[2025-01-01 06:06] LABS: VITAMIN B12 SERUM > 2000 pg/mL (211-911)
[2025-01-01] MEDS: FOLIC ACID 1MG TABLET NG SCH (08:28)
[2025-01-01] MEDS: IRON SUCROSE COMPLEX 100 MG/5 ML ML IV SCH (08:28)
[2025-01-01] MEDS: LEVETIRACETAM 500MG PREMIX 100 ML IV SCH (08:29)
[2025-01-01 10:25] LABS: BG BASE EXCESS -9.6 mmol/L (-2.0-3.0); BG CARBOXYHEMOGLOBIN 0.2 % (0.5-1.5); BG DEOXYHEMOGLOBIN 1.6 % (0.0-5.0); BG FRACTION INSPIRED OXYGEN 100; BG HCO3 ACT 16.7 mmol/L (21.0-28.0); BG METHEMOGLOBIN 0.3 % (0.5-1.5); BG OXYGEN SATURATION 98.4 % (94.0-98.0); BG OXYHEMOGLOBIN 97.9 % (94.0-98.0); BG PCO2 38.2 mmHg (35.0-48.0); BG PEEP (cmH2O) 5.0 cmH2O; BG PH 7.259 (7.350-7.450); BG PO2 120.7 mmHg (83.0-108.0); BG SAMPLE SITE LEFT RADIAL; BG TIDAL VOLUME(mL) 450.0 mL; BG TOTAL HEMOGLOBIN 11.0 g/dL (13.5-17.5); BG VENT MODE VENT - AC; BG VENT RATE 20.0 set
[2025-01-01] MEDS: MAGNESIUM 2 G PREMIX 50 ML IV NR (10:58)
[2025-01-01] MEDS: ENOXAPARIN 60MG/0.6ML SYR SUBCUT SCH (12:48)
[2025-01-01] MEDS: VANCOMYCIN 1G PREMIX 200 ML IV SCH (17:12)
[2025-01-01 17:24] LABS: HEMATOCRIT. 30.5 % (42.0-52.0); HEMOGLOBIN. 9.5 g/dL (14.0-18.0); MEAN PLATELET VOLUME 10.8 fl (7.4-10.4); PLATELET 115 x1000/uL (130-400); RED BLOOD CELL COUNT 3.38 mill/uL (4.7-6.1); RED CELL DISTRIBUTION WIDTH 19.6 % (11.6-14.6)
[2025-01-01 17:36] LABS: CREATININE 2.4 mg/dL (0.6-1.3); UREA NITROGEN BLOOD 33.0 mg/dL (9-23)
[2025-01-01 18:24] LABS: HEPATITIS A AB IGM NEGATIVE (Negative); HEPATITIS B CORE AB IGM NEGATIVE (Negative)
[2025-01-01 18:25] LABS: HEPATITIS C AB NON REACTIVE (Neg) (Negative)
[2025-01-01 19:05] LABS: BAND% 4.0 % (1.0-6.0); LYMPHOCYTES % MANUAL 5.0 % (20.0-50.0); MONOCYTES % MANUAL 2.0 % (2.0-8.0); NEUTROPHILS % MANUAL 89.0 % (45.0-75.0); PLATELET ESTIMATE DECREASED
[2025-01-01] MEDS: INSULIN REGULAR (HUMULIN R) 1000UNITS/10ML VIAL IV SCH (20:39)
[2025-01-01] MEDS: SODIUM ZIRCONIUM CYCLOSILICATE 10GM/PACKET PO SCH (20:43)
[2025-01-01] MEDS: SODIUM BICARBONATE 8.4% 50MEQ/50ML SYR IV SCH (20:43)
[2025-01-01] MEDS: DEXTROSE 50% WATER 50ML SYRINGE IV SCH (20:56)
[2025-01-02] VITALS (103 sets, daily range): BP systolic 76–161; BP diastolic 52–92; PULSE 45–105; RESP 12–23; TEMP 34.6–36.7; O2SAT 91–100
[2025-01-02 00:38] LABS: CREATININE 2.4 mg/dL (0.6-1.3)
[2025-01-02 00:39] LABS: UREA NITROGEN BLOOD 42 mg/dL (9-23)
[2025-01-02 00:41] LABS: PHOSPHORUS 5.1 mg/dL (2.5-4.9)
[2025-01-02] MEDS: DOPAMINE 400MG/250ML PREMIX 250 ML IV PRN (05:07)
[2025-01-02 06:52] LABS: HEMATOCRIT. 29.9 % (42.0-52.0); HEMOGLOBIN. 9.6 g/dL (14.0-18.0); MEAN PLATELET VOLUME 9.7 fl (7.4-10.4); PLATELET 91 x1000/uL (130-400); RED BLOOD CELL COUNT 3.40 mill/uL (4.7-6.1); RED CELL DISTRIBUTION WIDTH 19.0 % (11.6-14.6)
[2025-01-02 07:10] LABS: CREATININE 2.4 mg/dL (0.6-1.3); UREA NITROGEN BLOOD 44.0 mg/dL (9-23)
[2025-01-02 09:44] LABS: BG BASE EXCESS -5.2 mmol/L (-2.0-3.0); BG CARBOXYHEMOGLOBIN 0.6 % (0.5-1.5); BG DEOXYHEMOGLOBIN 3.1 % (0.0-5.0); BG FRACTION INSPIRED OXYGEN 40; BG HCO3 ACT 20.6 mmol/L (21.0-28.0); BG METHEMOGLOBIN 0.0 % (0.5-1.5); BG OXYGEN SATURATION 96.9 % (94.0-98.0); BG OXYHEMOGLOBIN 96.3 % (94.0-98.0); BG PCO2 41.2 mmHg (35.0-48.0); BG PEEP (cmH2O) 5.0 cmH2O; BG PH 7.317 (7.350-7.450); BG PO2 89.4 mmHg (83.0-108.0); BG SAMPLE SITE LEFT BRACHIAL; BG TIDAL VOLUME(mL) 450.0 mL; BG TOTAL HEMOGLOBIN 11.9 g/dL (13.5-17.5); BG VENT MODE VENT - AC; BG VENT RATE 20.0 set
[2025-01-02 10:03] LABS: BAND% 16.0 % (1.0-6.0); LYMPHOCYTES % MANUAL 7.0 % (20.0-50.0); MONOCYTES % MANUAL 2.0 % (2.0-8.0); NEUTROPHILS % MANUAL 75.0 % (45.0-75.0); PLATELET ESTIMATE DECREASED
[2025-01-02] MEDS: SODIUM BICARBONATE 8.4% 50MEQ/50ML SYR IV NR (10:59)
[2025-01-02] MEDS: VANCOMYCIN 500MG PREMIX 100 ML IV SCH (17:19)
[2025-01-03] VITALS (105 sets, daily range): BP systolic 63–183; BP diastolic 49–92; PULSE 62–99; RESP 12–28; TEMP 34.3–37.1; O2SAT 64–100
[2025-01-03 06:17] LABS: HEMATOCRIT. 27.6 % (42.0-52.0); HEMOGLOBIN. 9.1 g/dL (14.0-18.0); MEAN PLATELET VOLUME 9.9 fl (7.4-10.4); PLATELET 83 x1000/uL (130-400); RED BLOOD CELL COUNT 3.15 mill/uL (4.7-6.1); RED CELL DISTRIBUTION WIDTH 19.2 % (11.6-14.6)
[2025-01-03 06:27] LABS: CREATININE 2.5 mg/dL (0.6-1.3); UREA NITROGEN BLOOD 47.0 mg/dL (9-23)
[2025-01-03 08:56] LABS: BG BASE EXCESS -0.4 mmol/L (-2.0-3.0); BG CARBOXYHEMOGLOBIN 1.0 % (0.5-1.5); BG DEOXYHEMOGLOBIN 2.1 % (0.0-5.0); BG FRACTION INSPIRED OXYGEN 40; BG HCO3 ACT 24.4 mmol/L (21.0-28.0); BG METHEMOGLOBIN 0.3 % (0.5-1.5); BG OXYGEN SATURATION 97.9 % (94.0-98.0); BG OXYHEMOGLOBIN 96.6 % (94.0-98.0); BG PCO2 40.6 mmHg (35.0-48.0); BG PEEP (cmH2O) 5.0 cmH2O; BG PH 7.397 (7.350-7.450); BG PO2 99.4 mmHg (83.0-108.0); BG SAMPLE SITE RIGHT RADIAL; BG TIDAL VOLUME(mL) 450.0 mL; BG TOTAL HEMOGLOBIN 7.7 g/dL (13.5-17.5); BG TOTAL RESPIRATORY RATE 22 b/min; BG VENT MODE VENT - AC; BG VENT RATE 20.0 set
[2025-01-03 11:07] LABS: BAND% 25.0 % (1.0-6.0); LYMPHOCYTES % MANUAL 3.0 % (20.0-50.0); MYELOCYTES % 1.0 % (0-0); NEUTROPHILS % MANUAL 71.0 % (45.0-75.0)
[2025-01-03 11:08] LABS: PLATELET ESTIMATE DECREASED
[2025-01-03 16:17] LABS: BG BASE EXCESS -0.1 mmol/L (-2.0-3.0); BG CARBOXYHEMOGLOBIN 0.1 % (0.5-1.5); BG DEOXYHEMOGLOBIN 4.8 % (0.0-5.0); BG FRACTION INSPIRED OXYGEN 40; BG HCO3 ACT 24.7 mmol/L (21.0-28.0); BG METHEMOGLOBIN 0.3 % (0.5-1.5); BG OXYGEN SATURATION 95.2 % (94.0-98.0); BG OXYHEMOGLOBIN 94.8 % (94.0-98.0); BG PCO2 40.7 mmHg (35.0-48.0); BG PEEP (cmH2O) 5.0 cmH2O; BG PH 7.401 (7.350-7.450); BG PO2 74.1 mmHg (83.0-108.0); BG SAMPLE SITE RIGHT RADIAL; BG TOTAL HEMOGLOBIN 9.0 g/dL (13.5-17.5); BG VENT MODE VENT - CPAP
[2025-01-03] MEDS: AZITHROMYCIN 500MG/250ML 250 ML IV SCH (17:07)
[2025-01-04] VITALS (80 sets, daily range): BP systolic 86–129; BP diastolic 46–83; PULSE 64–103; RESP 14–26; TEMP 36.3–36.8; O2SAT 94–100
[2025-01-04 06:24] LABS: HEMATOCRIT. 23.3 % (42.0-52.0); HEMOGLOBIN. 7.9 g/dL (14.0-18.0); MEAN PLATELET VOLUME 9.7 fl (7.4-10.4); PLATELET 93 x1000/uL (130-400); RED BLOOD CELL COUNT 2.71 mill/uL (4.7-6.1); RED CELL DISTRIBUTION WIDTH 18.7 % (11.6-14.6)
[2025-01-04 06:38] LABS: CREATININE 2.2 mg/dL (0.6-1.3); UREA NITROGEN BLOOD 53.0 mg/dL (9-23)
[2025-01-04 09:07] LABS: BG BASE EXCESS -0.1 mmol/L (-2.0-3.0); BG CARBOXYHEMOGLOBIN 0.9 % (0.5-1.5); BG DEOXYHEMOGLOBIN 9.9 % (0.0-5.0); BG FRACTION INSPIRED OXYGEN 40; BG HCO3 ACT 24.3 mmol/L (21.0-28.0); BG METHEMOGLOBIN 0.2 % (0.5-1.5); BG OXYGEN SATURATION 90.0 % (94.0-98.0); BG OXYHEMOGLOBIN 89.0 % (94.0-98.0); BG PCO2 38.2 mmHg (35.0-48.0); BG PEEP (cmH2O) 5.0 cmH2O; BG PH 7.421 (7.350-7.450); BG PO2 57.4 mmHg (83.0-108.0); BG SAMPLE SITE RIGHT RADIAL; BG TIDAL VOLUME(mL) 450.0 mL; BG TOTAL HEMOGLOBIN 8.1 g/dL (13.5-17.5); BG VENT MODE VENT - AC; BG VENT RATE 20.0 set
[2025-01-04 10:29] LABS: BAND% 9.0 % (1.0-6.0); LYMPHOCYTES % MANUAL 1.0 % (20.0-50.0); MONOCYTES % MANUAL 4.0 % (2.0-8.0); NEUTROPHILS % MANUAL 86.0 % (45.0-75.0); PLATELET ESTIMATE DECREASED
[2025-01-04 12:03] LABS: BG BASE EXCESS -1.2 mmol/L (-2.0-3.0); BG CARBOXYHEMOGLOBIN 0.7 % (0.5-1.5); BG DEOXYHEMOGLOBIN 5.0 % (0.0-5.0); BG FRACTION INSPIRED OXYGEN 40; BG HCO3 ACT 23.3 mmol/L (21.0-28.0); BG METHEMOGLOBIN 0.2 % (0.5-1.5); BG OXYGEN SATURATION 95.0 % (94.0-98.0); BG OXYHEMOGLOBIN 94.1 % (94.0-98.0); BG PCO2 37.7 mmHg (35.0-48.0); BG PEEP (cmH2O) 5.0 cmH2O; BG PH 7.409 (7.350-7.450); BG PO2 75.6 mmHg (83.0-108.0); BG SAMPLE SITE RIGHT RADIAL; BG TOTAL HEMOGLOBIN 8.5 g/dL (13.5-17.5); BG VENT MODE VENT - CPAP
[2025-01-04] MEDS: POTASSIUM CHLORIDE 20MEQ/PACKET PO SCH (12:03)
[2025-01-04 18:06] LABS: BG BASE EXCESS -1.0 mmol/L (-2.0-3.0); BG CARBOXYHEMOGLOBIN 0.5 % (0.5-1.5); BG DEOXYHEMOGLOBIN 2.5 % (0.0-5.0); BG FLOW(L/min) 10.00 L/min; BG FRACTION INSPIRED OXYGEN 50; BG HCO3 ACT 22.5 mmol/L (21.0-28.0); BG METHEMOGLOBIN 0.0 % (0.5-1.5); BG OXYGEN SATURATION 97.5 % (94.0-98.0); BG OXYHEMOGLOBIN 97.0 % (94.0-98.0); BG PCO2 33.4 mmHg (35.0-48.0); BG PH 7.447 (7.350-7.450); BG PO2 96.6 mmHg (83.0-108.0); BG SAMPLE SITE LEFT RADIAL; BG TOTAL HEMOGLOBIN 10.3 g/dL (13.5-17.5); BG VENT MODE COOL AEROSOL
[2025-01-05] VITALS (74 sets, daily range): BP systolic 93–135; BP diastolic 48–76; PULSE 51–74; RESP 10–26; TEMP 36.2–36.6; O2SAT 79–100
[2025-01-05 06:34] LABS: BG BASE EXCESS -2.4 mmol/L (-2.0-3.0); BG CARBOXYHEMOGLOBIN 1.0 % (0.5-1.5); BG DEOXYHEMOGLOBIN 0.6 % (0.0-5.0); BG FLOW(L/min) 15.00 L/min; BG FRACTION INSPIRED OXYGEN 100; BG HCO3 ACT 21.9 mmol/L (21.0-28.0); BG METHEMOGLOBIN 0.3 % (0.5-1.5); BG OXYGEN SATURATION 99.4 % (94.0-98.0); BG OXYHEMOGLOBIN 98.1 % (94.0-98.0); BG PCO2 35.3 mmHg (35.0-48.0); BG PH 7.411 (7.350-7.450); BG PO2 211.6 mmHg (83.0-108.0); BG SAMPLE SITE LEFT RADIAL; BG TOTAL HEMOGLOBIN 8.0 g/dL (13.5-17.5); BG VENT MODE MASK - NRB
[2025-01-05 06:46] LABS: CREATININE 2.3 mg/dL (0.6-1.3)
[2025-01-05 06:47] LABS: UREA NITROGEN BLOOD 58.0 mg/dL (9-23)
[2025-01-05 09:08] LABS: BG BASE EXCESS -2.0 mmol/L (-2.0-3.0); BG CARBOXYHEMOGLOBIN 0.3 % (0.5-1.5); BG DEOXYHEMOGLOBIN 2.0 % (0.0-5.0); BG FRACTION INSPIRED OXYGEN 40; BG HCO3 ACT 22.6 mmol/L (21.0-28.0); BG METHEMOGLOBIN 0.1 % (0.5-1.5); BG OXYGEN SATURATION 98.0 % (94.0-98.0); BG OXYHEMOGLOBIN 97.6 % (94.0-98.0); BG PCO2 37.3 mmHg (35.0-48.0); BG PH 7.400 (7.350-7.450); BG PO2 107.8 mmHg (83.0-108.0); BG SAMPLE SITE RIGHT RADIAL; BG TOTAL HEMOGLOBIN 5.6 g/dL (13.5-17.5); BG VENT MODE NASAL CANNULA
[2025-01-05] MEDS: POTASSIUM CHLORIDE 20MEQ/PACKET PO SCH (12:24)
[2025-01-05 13:26] LABS: HEMATOCRIT. 22.7 % (42.0-52.0); HEMOGLOBIN. 7.2 g/dL (14.0-18.0); MEAN PLATELET VOLUME 10.2 fl (7.4-10.4); PLATELET 97 x1000/uL (130-400); RED BLOOD CELL COUNT 2.56 mill/uL (4.7-6.1); RED CELL DISTRIBUTION WIDTH 19.7 % (11.6-14.6)
[2025-01-05] MEDS: CEFTRIAXONE 2GM/50ML 50 ML IV SCH (17:46)
[2025-01-05 21:32] LABS: LYMPHOCYTES % MANUAL 4.0 % (20.0-50.0); MONOCYTES % MANUAL 5.0 % (2.0-8.0); NEUTROPHILS % MANUAL 91.0 % (45.0-75.0); PLATELET ESTIMATE DECREASED
[2025-01-06] VITALS (16 sets, daily range): BP systolic 111–150; BP diastolic 55–67; PULSE 45–57; RESP 10–19; TEMP 33.7–36.6; O2SAT 95–100
[2025-01-06 12:06] LABS: HEMATOCRIT. 24.8 % (42.0-52.0); HEMOGLOBIN. 8.3 g/dL (14.0-18.0); MEAN PLATELET VOLUME 8.8 fl (7.4-10.4); PLATELET 100 x1000/uL (130-400); RED BLOOD CELL COUNT 2.87 mill/uL (4.7-6.1); RED CELL DISTRIBUTION WIDTH 18.8 % (11.6-14.6)
[2025-01-06 12:24] LABS: CREATININE 1.7 mg/dL (0.6-1.3); UREA NITROGEN BLOOD 51.0 mg/dL (9-23)
[2025-01-06] MEDS: POTASSIUM CHLORIDE 20MEQ/PACKET PO NR (16:00)
[2025-01-06 17:42] LABS: LYMPHOCYTES % MANUAL 5.0 % (20.0-50.0); MONOCYTES % MANUAL 3.0 % (2.0-8.0); NEUTROPHILS % MANUAL 92.0 % (45.0-75.0); PLATELET ESTIMATE NORMAL
[2025-01-07] VITALS (13 sets, daily range): BP systolic 93–119; BP diastolic 48–63; PULSE 58–72; RESP 8–17; TEMP 34.4–36.7; O2SAT 91–100
[2025-01-07 07:19] LABS: CREATININE 1.6 mg/dL (0.6-1.3); UREA NITROGEN BLOOD 45.0 mg/dL (9-23)
[2025-01-07 07:39] LABS: HEMATOCRIT. 24.8 % (42.0-52.0); HEMOGLOBIN. 8.2 g/dL (14.0-18.0); MEAN PLATELET VOLUME 10.0 fl (7.4-10.4); PLATELET 106 x1000/uL (130-400); RED BLOOD CELL COUNT 2.85 mill/uL (4.7-6.1); RED CELL DISTRIBUTION WIDTH 18.8 % (11.6-14.6)
[2025-01-07 11:08] LABS: BG BASE EXCESS -1.1 mmol/L (-2.0-3.0); BG CARBOXYHEMOGLOBIN 0.5 % (0.5-1.5); BG DEOXYHEMOGLOBIN 6.0 % (0.0-5.0); BG FLOW(L/min) 3.00 L/min; BG FRACTION INSPIRED OXYGEN 32; BG HCO3 ACT 23.1 mmol/L (21.0-28.0); BG METHEMOGLOBIN 0.3 % (0.5-1.5); BG OXYGEN SATURATION 94.0 % (94.0-98.0); BG OXYHEMOGLOBIN 93.2 % (94.0-98.0); BG PCO2 36.2 mmHg (35.0-48.0); BG PH 7.423 (7.350-7.450); BG PO2 68.6 mmHg (83.0-108.0); BG SAMPLE SITE LEFT RADIAL; BG TOTAL HEMOGLOBIN 8.4 g/dL (13.5-17.5); BG VENT MODE NASAL CANNULA
[2025-01-07] MEDS: ALBUTEROL (0.083%) 2.5MG/3ML NEB INH SCH (20:28)
[2025-01-08] VITALS (18 sets, daily range): BP systolic 104–136; BP diastolic 48–74; PULSE 64–76; RESP 11–20; TEMP 35.7–36.7; O2SAT 84–100
[2025-01-08] MEDS: DEXTROSE 10% WATER 250 ML IV SCH (03:50)
[2025-01-08 07:35] LABS: CREATININE 1.6 mg/dL (0.6-1.3); UREA NITROGEN BLOOD 42.0 mg/dL (9-23)
[2025-01-08 08:27] LABS: HEMATOCRIT. 25.0 % (42.0-52.0); HEMOGLOBIN. 8.1 g/dL (14.0-18.0); MEAN PLATELET VOLUME 10.5 fl (7.4-10.4); PLATELET 133 x1000/uL (130-400); RED BLOOD CELL COUNT 2.82 mill/uL (4.7-6.1); RED CELL DISTRIBUTION WIDTH 19.5 % (11.6-14.6)
[2025-01-08 11:19] LABS: LYMPHOCYTES % MANUAL 1.0 % (20.0-50.0); MONOCYTES % MANUAL 4.0 % (2.0-8.0); NEUTROPHILS % MANUAL 95.0 % (45.0-75.0); PLATELET ESTIMATE DECREASED
[2025-01-08] MEDS: HYDROCORTISONE SOD SUCCINATE 100 MG/2 ML VIAL IV SCH (13:24)
[2025-01-09] VITALS (16 sets, daily range): BP systolic 138–173; BP diastolic 44–85; PULSE 51–90; RESP 15–20; TEMP 35.6–37.5; O2SAT 95–100
[2025-01-09] MEDS: DEXT 5%/0.45% NACL 1000ML 1,000 ML IV SCH (02:28)
[2025-01-09 16:02] LABS: LYMPHOCYTES % MANUAL 3.0 % (20.0-50.0); MONOCYTES % MANUAL 5.0 % (2.0-8.0); NEUTROPHILS % MANUAL 92.0 % (45.0-75.0); PLATELET ESTIMATE NORMAL
[2025-01-10] VITALS (11 sets, daily range): BP systolic 150–172; BP diastolic 69–80; PULSE 50–83; RESP 16–20; TEMP 34.9–37.6; O2SAT 96–100
[2025-01-10] MEDS ORDERED: DEXT 10% WATER 1,000 ML IV SCH (00:15)
[2025-01-10] MEDS ORDERED: DEXT 10% WATER 250 ML IV SCH (00:30)
[2025-01-10] MEDS: HYDROCORTISONE SOD SUCCINATE 100 MG/2 ML VIAL IV SCH (14:29)
[2025-01-10 21:25] LABS: HEMATOCRIT. 26.5 % (42.0-52.0); HEMOGLOBIN. 8.7 g/dL (14.0-18.0); MEAN PLATELET VOLUME 10.8 fl (7.4-10.4); PLATELET 179 x1000/uL (130-400); RED BLOOD CELL COUNT 3.02 mill/uL (4.7-6.1); RED CELL DISTRIBUTION WIDTH 19.0 % (11.6-14.6)
[2025-01-10 21:51] LABS: CREATININE 1.1 mg/dL (0.6-1.3); UREA NITROGEN BLOOD 42 mg/dL (9-23)
[2025-01-10 21:52] LABS: LYMPHOCYTES % MANUAL 1.0 % (20.0-50.0); MONOCYTES % MANUAL 10.0 % (2.0-8.0); NEUTROPHILS % MANUAL 89.0 % (45.0-75.0); PLATELET ESTIMATE NORMAL
[2025-01-10] MEDS: HYDRALAZINE 20MG/ML VIAL IV PRN (22:54)
[2025-01-11] VITALS (10 sets, daily range): BP systolic 149–168; BP diastolic 64–83; PULSE 55–76; RESP 18–20; TEMP 34.9–36.3; O2SAT 92–99
[2025-01-11] MEDS ORDERED: CEFEPIME 1GM IN DEXT 5% 50ML IV SCH (00:15)
[2025-01-11] MEDS: CEFEPIME 2GM PREMIX 100ML IV SCH (02:00)
[2025-01-11] MEDS: CEFAZOLIN 1000MG PREMIX 50 ML IV SCH (05:00)
[2025-01-11 07:15] LABS: HEMATOCRIT. 28.3 % (42.0-52.0); HEMOGLOBIN. 9.4 g/dL (14.0-18.0); MEAN PLATELET VOLUME 10.4 fl (7.4-10.4); PLATELET 203 x1000/uL (130-400); RED BLOOD CELL COUNT 3.17 mill/uL (4.7-6.1); RED CELL DISTRIBUTION WIDTH 19.3 % (11.6-14.6)
[2025-01-11 07:32] LABS: INR 1.1
[2025-01-11 07:41] LABS: CREATININE 1.1 mg/dL (0.6-1.3); UREA NITROGEN BLOOD 41 mg/dL (9-23)
[2025-01-11 07:43] LABS: ASPARTATE AMINOTRANSFERASE 64 IU/L (<34); BILIRUBIN TOTAL 0.2 mg/dL (0.1-1.0); PROTEIN TOTAL 5.9 g/dL (6.0-8.3)
[2025-01-11] MEDS ORDERED: ASPI81TA47 PO (08:15)
[2025-01-11] MEDS ORDERED: EZET-81 (08:15)
[2025-01-11] MEDS ORDERED: EZET-55 MT (08:15)
[2025-01-11] MEDS ORDERED: PROPOFOL 200MG/20ML VIAL IV ONE (17:39)
[2025-01-11] MEDS ORDERED: HYDROMORPHONE HCL/PF 1MG/ML INJ IV PRN (18:00)
[2025-01-11] MEDS ORDERED: ONDANSETRON HCL 4MG/2ML INJ IV PRN (18:00)
[2025-01-11 19:44] LABS: LYMPHOCYTES % MANUAL 6.0 % (20.0-50.0); MONOCYTES % MANUAL 4.0 % (2.0-8.0); NEUTROPHILS % MANUAL 90.0 % (45.0-75.0); PLATELET ESTIMATE NORMAL
[2025-01-11] MEDS: DEXTROSE 50% WATER 50ML SYRINGE IV NR (21:59)
[2025-01-12] VITALS (10 sets, daily range): BP systolic 17–170; BP diastolic 59–82; PULSE 55–95; RESP 18–20; TEMP 35.9–36.1; O2SAT 92–100
[2025-01-12] MEDS: METOCLOPRAMIDE HCL 10MG/2ML VIAL IV SCH (06:24)
[2025-01-12] MEDS: SUCRALFATE 1G TABLET GT SCH (13:13)
[2025-01-13] VITALS (7 sets, daily range): BP systolic 151–177; BP diastolic 58–75; PULSE 54–98; RESP 18; TEMP 35.9–37.6; O2SAT 93–98
[2025-01-13] MEDS: CEFEPIME 2GM PREMIX 100ML IV SCH (10:14)
[2025-01-13] MEDS: ENOXAPARIN 80MG/0.8ML SYR SUBCUT SCH (17:04)
[2025-01-14] VITALS (7 sets, daily range): BP systolic 138–178; BP diastolic 52–84; PULSE 52–75; RESP 18–20; TEMP 35.4–37.1; O2SAT 92–98
[2025-01-14 11:51] LABS: PLATELET 256 x1000/uL (130-400); RED BLOOD CELL COUNT 3.69 mill/uL (4.7-6.1); RED CELL DISTRIBUTION WIDTH 20.0 % (11.6-14.6)
[2025-01-15] VITALS (8 sets, daily range): BP systolic 123–161; BP diastolic 60–74; PULSE 47–57; RESP 18–19; TEMP 36.2–37.3; O2SAT 92–100
[2025-01-15] MEDS: HYDROCORTISONE SOD SUCCINATE 100 MG/2 ML VIAL IV SCH (13:28)
[2025-01-15 22:18] LABS: HEMATOCRIT. 31.7 % (42.0-52.0); HEMOGLOBIN. 10.1 g/dL (14.0-18.0); MEAN PLATELET VOLUME 10.6 fl (7.4-10.4); PLATELET 217 x1000/uL (130-400); RED BLOOD CELL COUNT 3.54 mill/uL (4.7-6.1); RED CELL DISTRIBUTION WIDTH 21.4 % (11.6-14.6)
[2025-01-15 22:34] LABS: CREATININE 1.1 mg/dL (0.6-1.3); UREA NITROGEN BLOOD 47 mg/dL (9-23)
[2025-01-15 22:35] LABS: PROTEIN TOTAL 5.3 g/dL (6.0-8.3)
[2025-01-15 22:36] LABS: ASPARTATE AMINOTRANSFERASE 156 IU/L (<34); BILIRUBIN DIRECT 0.1 mg/dL (<=3.0); BILIRUBIN TOTAL 0.3 mg/dL (0.1-1.0)
[2025-01-16] VITALS (46 sets, daily range): BP systolic 95–150; BP diastolic 55–107; PULSE 43–85; RESP 0–25; TEMP 32.3–36.8; O2SAT 87–99
[2025-01-16 00:11] LABS: BAND% 1.0 % (1.0-6.0); LYMPHOCYTES % MANUAL 4.0 % (20.0-50.0); MONOCYTES % MANUAL 3.0 % (2.0-8.0); NEUTROPHILS % MANUAL 92.0 % (45.0-75.0); PLATELET ESTIMATE NORMAL
[2025-01-16 00:53] LABS: HEMATOCRIT. 31.8 % (42.0-52.0); HEMOGLOBIN. 9.9 g/dL (14.0-18.0); MEAN PLATELET VOLUME 10.6 fl (7.4-10.4); PLATELET 220 x1000/uL (130-400); RED BLOOD CELL COUNT 3.49 mill/uL (4.7-6.1); RED CELL DISTRIBUTION WIDTH 21.5 % (11.6-14.6)
[2025-01-16 01:05] LABS: CREATININE 1.1 mg/dL (0.6-1.3); UREA NITROGEN BLOOD 38 mg/dL (9-23)
[2025-01-16 05:33] LABS: LYMPHOCYTES % MANUAL 2.0 % (20.0-50.0); MONOCYTES % MANUAL 3.0 % (2.0-8.0); NEUTROPHILS % MANUAL 95.0 % (45.0-75.0); PLATELET ESTIMATE NORMAL
[2025-01-16 07:44] LABS: HEMATOCRIT. 33.7 % (42.0-52.0); HEMOGLOBIN. 10.7 g/dL (14.0-18.0); MEAN PLATELET VOLUME 10.8 fl (7.4-10.4); PLATELET 194 x1000/uL (130-400); RED BLOOD CELL COUNT 3.68 mill/uL (4.7-6.1); RED CELL DISTRIBUTION WIDTH 21.6 % (11.6-14.6)
[2025-01-16 07:47] LABS: CREATININE 1.2 mg/dL (0.6-1.3); UREA NITROGEN BLOOD 44 mg/dL (9-23)
[2025-01-16 10:47] LABS: BG BASE EXCESS -0.9 mmol/L (-2.0-3.0); BG CARBOXYHEMOGLOBIN 0.7 % (0.5-1.5); BG DEOXYHEMOGLOBIN 10.0 % (0.0-5.0); BG FLOW(L/min) 3.00 L/min; BG FRACTION INSPIRED OXYGEN 32; BG HCO3 ACT 24.2 mmol/L (21.0-28.0); BG METHEMOGLOBIN 0.3 % (0.5-1.5); BG OXYGEN SATURATION 89.9 % (94.0-98.0); BG OXYHEMOGLOBIN 89.0 % (94.0-98.0); BG PCO2 41.8 mmHg (35.0-48.0); BG PH 7.380 (7.350-7.450); BG PO2 60.4 mmHg (83.0-108.0); BG SAMPLE SITE RIGHT RADIAL; BG TOTAL HEMOGLOBIN 10.2 g/dL (13.5-17.5); BG VENT MODE NASAL CANNULA
[2025-01-16] MEDS ORDERED: ALBUMIN HUMAN 12.5G/250ML (5%) IV NR (13:00)
[2025-01-16] MEDS: DOPAMINE 400MG/250ML PREMIX 250 ML IV PRN (13:48)
[2025-01-16] MEDS: DEXT 5%/0.45% NACL 1000ML 1,000 ML IV SCH (15:03)
[2025-01-16 15:25] LABS: BAND% 8.0 % (1.0-6.0); MONOCYTES % MANUAL 1.0 % (2.0-8.0); NEUTROPHILS % MANUAL 91.0 % (45.0-75.0); PLATELET ESTIMATE NORMAL
[2025-01-16 16:12] LABS: INR 1.3
[2025-01-16 16:53] LABS: BG BASE EXCESS -1.9 mmol/L (-2.0-3.0); BG CARBOXYHEMOGLOBIN 0.9 % (0.5-1.5); BG DEOXYHEMOGLOBIN 15.0 % (0.0-5.0); BG FLOW(L/min) 15.00 L/min; BG FRACTION INSPIRED OXYGEN 100; BG HCO3 ACT 24.1 mmol/L (21.0-28.0); BG METHEMOGLOBIN 0.3 % (0.5-1.5); BG OXYGEN SATURATION 84.8 % (94.0-98.0); BG OXYHEMOGLOBIN 83.8 % (94.0-98.0); BG PCO2 46.8 mmHg (35.0-48.0); BG PH 7.330 (7.350-7.450); BG PO2 54.4 mmHg (83.0-108.0); BG SAMPLE SITE LEFT RADIAL; BG TOTAL HEMOGLOBIN 10.7 g/dL (13.5-17.5); BG VENT MODE MASK - NRB
[2025-01-16 16:56] LABS: CLARITY URINE TURBID (CLEAR); COLOR URINE RED (YELLOW); GLUCOSE URINE TRACE (NEGATIVE); KETONES URINE NEGATIVE (NEGATIVE); LEUKOCYTE ESTERASE URINE 2+ (NEGATIVE); NITRITE URINE NEGATIVE (NEGATIVE); OCCULT BLOOD URINE 3+ (NEGATIVE); PH URINE 5.0 (4.5-8.0); PROTEIN URINE 2+ (NEGATIVE); SPECIFIC GRAVITY URINE 1.017 (1.005-1.030); UROBILINOGEN URINE 0.2 E.U./dL (0.2-1.0)
[2025-01-16 17:28] LABS: BACTERIA URINE 2+; RBC URINE TNTC /hpf (0-2); SQUAMOUS EPITHELIAL CELL URINE 1+ /lpf (RARE/1+)
[2025-01-16 18:32] LABS: BG BASE EXCESS -1.3 mmol/L (-2.0-3.0); BG CARBOXYHEMOGLOBIN 0.1 % (0.5-1.5); BG DEOXYHEMOGLOBIN 5.5 % (0.0-5.0); BG FRACTION INSPIRED OXYGEN 100; BG HCO3 ACT 25.5 mmol/L (21.0-28.0); BG METHEMOGLOBIN 0.3 % (0.5-1.5); BG OXYGEN SATURATION 94.5 % (94.0-98.0); BG OXYHEMOGLOBIN 94.1 % (94.0-98.0); BG PCO2 52.2 mmHg (35.0-48.0); BG PH 7.306 (7.350-7.450); BG PO2 80.0 mmHg (83.0-108.0); BG SAMPLE SITE LEFT RADIAL; BG TOTAL HEMOGLOBIN 10.4 g/dL (13.5-17.5); BG VENT MODE MASK - BIPAP; BG VENT RATE 18.0 set
[2025-01-16] MEDS: VANCOMYCIN 750MG/150ML (BAXTER) IV SCH (21:53)
[2025-01-16] MEDS: PANTOPRAZOLE SODIUM 40 MG/VIAL IV SCH (21:54)
[2025-01-17] VITALS (130 sets, daily range): BP systolic 52–197; BP diastolic 33–152; PULSE 44–122; RESP 0–33; TEMP 36.1–36.9; O2SAT 79–100
[2025-01-17] MEDS ORDERED: NOREPINEPHRINE 32 MG in DEXT 5% WATER 218 ML IV PRN (04:00)
[2025-01-17 07:27] LABS: HEMATOCRIT. 25.8 % (42.0-52.0); HEMOGLOBIN. 8.2 g/dL (14.0-18.0); MEAN PLATELET VOLUME 11.5 fl (7.4-10.4); PLATELET 207 x1000/uL (130-400); RED BLOOD CELL COUNT 2.84 mill/uL (4.7-6.1); RED CELL DISTRIBUTION WIDTH 21.0 % (11.6-14.6)
[2025-01-17 07:35] LABS: TROPONIN I HIGH SENSITIVITY 35 ng/L (3.0-53)
[2025-01-17 07:39] LABS: CREATININE 1.3 mg/dL (0.6-1.3); UREA NITROGEN BLOOD 65 mg/dL (9-23)
[2025-01-17 07:40] LABS: PROTEIN TOTAL 4.6 g/dL (6.0-8.3)
[2025-01-17 07:41] LABS: ASPARTATE AMINOTRANSFERASE 86 IU/L (<34)
[2025-01-17 07:42] LABS: BILIRUBIN TOTAL 0.3 mg/dL (0.1-1.0); PHOSPHORUS 3.0 mg/dL (2.5-4.9)
[2025-01-17] MEDS: ALBUTEROL (0.083%) 2.5MG/3ML NEB ONE (09:41)
[2025-01-17 10:10] LABS: BG BASE EXCESS -4.1 mmol/L (-2.0-3.0); BG CARBOXYHEMOGLOBIN 0.6 % (0.5-1.5); BG DEOXYHEMOGLOBIN 14.9 % (0.0-5.0); BG FRACTION INSPIRED OXYGEN 100; BG HCO3 ACT 24.3 mmol/L (21.0-28.0); BG METHEMOGLOBIN 0.2 % (0.5-1.5); BG OXYGEN SATURATION 85.0 % (94.0-98.0); BG OXYHEMOGLOBIN 84.3 % (94.0-98.0); BG PCO2 61.6 mmHg (35.0-48.0); BG PH 7.213 (7.350-7.450); BG PO2 56.1 mmHg (83.0-108.0); BG SAMPLE SITE RIGHT RADIAL; BG TOTAL HEMOGLOBIN 10.6 g/dL (13.5-17.5); BG VENT MODE MASK - BIPAP; BG VENT RATE 18.0 set
[2025-01-17] MEDS ORDERED: MIDAZOLAM HCL 5 MG/5 ML VIAL IV PRN (10:45)
[2025-01-17] MEDS ORDERED: NALOXONE HCL 0.4MG/ML VIAL IV PRN (11:00)
[2025-01-17 12:39] LABS: BAND% 9.0 % (1.0-6.0); LYMPHOCYTES % MANUAL 1.0 % (20.0-50.0); MONOCYTES % MANUAL 1.0 % (2.0-8.0); NEUTROPHILS % MANUAL 89.0 % (45.0-75.0)
[2025-01-17 12:40] LABS: PLATELET ESTIMATE NORMAL
[2025-01-17 12:54] LABS: INR 1.3
[2025-01-17] MEDS: PIPERACILLIN/TAZO 3.375G/50ML 50 ML IV SCH (13:14)
[2025-01-17 13:38] LABS: BG BASE EXCESS -7.4 mmol/L (-2.0-3.0); BG CARBOXYHEMOGLOBIN 0.6 % (0.5-1.5); BG DEOXYHEMOGLOBIN 9.0 % (0.0-5.0); BG FRACTION INSPIRED OXYGEN 100; BG HCO3 ACT 22.3 mmol/L (21.0-28.0); BG METHEMOGLOBIN 0.1 % (0.5-1.5); BG OXYGEN SATURATION 90.9 % (94.0-98.0); BG OXYHEMOGLOBIN 90.3 % (94.0-98.0); BG PCO2 69.4 mmHg (35.0-48.0); BG PEEP (cmH2O) 5.0 cmH2O; BG PH 7.125 (7.350-7.450); BG PO2 72.8 mmHg (83.0-108.0); BG SAMPLE SITE RIGHT RADIAL; BG TIDAL VOLUME(mL) 400.0 mL; BG TOTAL HEMOGLOBIN 10.3 g/dL (13.5-17.5); BG TOTAL RESPIRATORY RATE 14 b/min; BG VENT MODE VENT - AC; BG VENT RATE 14.0 set
[2025-01-17] MEDS: NOREPINEPHRINE 8MG/250ML PMX 250 ML IV PRN (14:07)
[2025-01-17] MEDS ORDERED: EPINEPHRINE 10 MG in SODIUM CHLORIDE 0.9% 240 ML IV PRN (15:30)
[2025-01-17] MEDS ORDERED: NOREPINEPHRINE 8MG/250ML PMX 250 ML IV PRN (16:00)
[2025-01-17 16:23] LABS: BG BASE EXCESS -6.0 mmol/L (-2.0-3.0); BG CARBOXYHEMOGLOBIN 1.0 % (0.5-1.5); BG DEOXYHEMOGLOBIN 11.7 % (0.0-5.0); BG FRACTION INSPIRED OXYGEN 100; BG HCO3 ACT 20.6 mmol/L (21.0-28.0); BG METHEMOGLOBIN 0.3 % (0.5-1.5); BG OXYGEN SATURATION 88.1 % (94.0-98.0); BG OXYHEMOGLOBIN 87.0 % (94.0-98.0); BG PCO2 46.1 mmHg (35.0-48.0); BG PEEP (cmH2O) 5.0 cmH2O; BG PH 7.269 (7.350-7.450); BG PO2 55.4 mmHg (83.0-108.0); BG SAMPLE SITE RIGHT RADIAL; BG TIDAL VOLUME(mL) 450.0 mL; BG TOTAL HEMOGLOBIN 9.2 g/dL (13.5-17.5); BG TOTAL RESPIRATORY RATE 30 b/min; BG VENT MODE VENT - AC; BG VENT RATE 28.0 set
[2025-01-17] MEDS: NOREPINEPHRINE 32 MG in DEXT 5% WATER 218 ML IV PRN (18:49)
[2025-01-17] MEDS: VANCOMYCIN 750MG PREMIX 150 ML IV SCH (22:05)
[2025-01-17] MEDS: HYDROCORTISONE SOD SUCCINATE 100 MG/2 ML VIAL IV SCH (22:11)
[2025-01-18] VITALS (106 sets, daily range): BP systolic 45–171; BP diastolic 33–130; PULSE 55–88; RESP 25–30; TEMP 36.3–36.8; O2SAT 93–100
[2025-01-18] MEDS: VASOPRESSIN 20 UNIT in SODIUM CHLORIDE 0.9% 99 ML IV PRN (00:54)
[2025-01-18 06:21] LABS: MEAN PLATELET VOLUME 11.3 fl (7.4-10.4); PLATELET 135 x1000/uL (130-400); RED BLOOD CELL COUNT 2.29 mill/uL (4.7-6.1); RED CELL DISTRIBUTION WIDTH 22.3 % (11.6-14.6)
[2025-01-18 06:29] LABS: UREA NITROGEN BLOOD 62.0 mg/dL (9-23)
[2025-01-18 06:33] LABS: PROTEIN TOTAL 4.0 g/dL (6.0-8.3)
[2025-01-18 06:34] LABS: ASPARTATE AMINOTRANSFERASE 89 IU/L (<34); BILIRUBIN DIRECT 0.2 mg/dL (<=3.0); BILIRUBIN TOTAL 0.4 mg/dL (0.1-1.0)
[2025-01-18 06:50] LABS: HEMATOCRIT. 20.6 % (42.0-52.0); HEMOGLOBIN. 6.5 g/dL (14.0-18.0)
[2025-01-18] MEDS: PHENYLEPHRINE 100 MG in DEXT 5% WATER 240 ML IV PRN (07:08)
[2025-01-18 07:31] LABS: CREATININE 2.0 mg/dL (0.6-1.3)
[2025-01-18] MEDS ORDERED: NOREPINEPHRINE 32 MG in DEXT 5% WATER 218 ML IV PRN (07:45)
[2025-01-18 09:47] LABS: BG BASE EXCESS -6.7 mmol/L (-2.0-3.0); BG CARBOXYHEMOGLOBIN 2.2 % (0.5-1.5); BG DEOXYHEMOGLOBIN 2.4 % (0.0-5.0); BG FRACTION INSPIRED OXYGEN 100; BG HCO3 ACT 19.5 mmol/L (21.0-28.0); BG METHEMOGLOBIN 0.1 % (0.5-1.5); BG OXYGEN SATURATION 97.5 % (94.0-98.0); BG OXYHEMOGLOBIN 95.3 % (94.0-98.0); BG PCO2 43.0 mmHg (35.0-48.0); BG PEEP (cmH2O) 5.0 cmH2O; BG PH 7.275 (7.350-7.450); BG PO2 99.7 mmHg (83.0-108.0); BG SAMPLE SITE RIGHT RADIAL; BG TIDAL VOLUME(mL) 450.0 mL; BG TOTAL HEMOGLOBIN 6.2 g/dL (13.5-17.5); BG VENT MODE VENT - AC; BG VENT RATE 28.0 set
[2025-01-18 11:55] LABS: BAND% 9.0 % (1.0-6.0); LYMPHOCYTES % MANUAL 2.0 % (20.0-50.0); MONOCYTES % MANUAL 1.0 % (2.0-8.0); NEUTROPHILS % MANUAL 88.0 % (45.0-75.0); PLATELET ESTIMATE NORMAL
[2025-01-18] MEDS: EPINEPHRINE 20 MG in SODIUM CHLORIDE 0.9% 480 ML IV PRN (12:08)
[2025-01-18 18:08] LABS: HEMATOCRIT. 25.8 % (42.0-52.0); HEMOGLOBIN. 8.1 g/dL (14.0-18.0); MEAN PLATELET VOLUME 10.7 fl (7.4-10.4); PLATELET 90 x1000/uL (130-400); RED BLOOD CELL COUNT 2.83 mill/uL (4.7-6.1); RED CELL DISTRIBUTION WIDTH 19.6 % (11.6-14.6)
[2025-01-18 18:21] LABS: CREATININE 1.9 mg/dL (0.6-1.3)
[2025-01-18 18:22] LABS: PROTEIN TOTAL 4.2 g/dL (6.0-8.3); UREA NITROGEN BLOOD 58 mg/dL (9-23)
[2025-01-18 18:24] LABS: ASPARTATE AMINOTRANSFERASE 104 IU/L (<34); BILIRUBIN TOTAL 0.5 mg/dL (0.1-1.0)
[2025-01-18 18:38] LABS: BAND% 10.0 % (1.0-6.0); LYMPHOCYTES % MANUAL 2.0 % (20.0-50.0); MONOCYTES % MANUAL 6.0 % (2.0-8.0); NEUTROPHILS % MANUAL 82.0 % (45.0-75.0); NUCLEATED RED BLOOD CELLS 3 /100 WBC; PLATELET ESTIMATE DECREASED
[2025-01-19] VITALS (107 sets, daily range): BP systolic 59–207; BP diastolic 42–115; PULSE 63–80; RESP 14–31; TEMP 36.2–36.7; O2SAT 93–100
[2025-01-19] MEDS: FENTANYL CITRATE/PF 50MCG/ML 2ML VIAL IV PRN (01:56)
[2025-01-19] MEDS: PROPOFOL 10MG/ML 100ML 100 ML IV PRN (04:48)
[2025-01-19 06:18] LABS: PROTEIN TOTAL 4.3 g/dL (6.0-8.3)
[2025-01-19 06:19] LABS: ASPARTATE AMINOTRANSFERASE 117 IU/L (<34); BILIRUBIN DIRECT 0.3 mg/dL (<=3.0); BILIRUBIN TOTAL 0.5 mg/dL (0.1-1.0)
[2025-01-19 10:48] LABS: BG BASE EXCESS -11.5 mmol/L (-2.0-3.0); BG CARBOXYHEMOGLOBIN 0.5 % (0.5-1.5); BG DEOXYHEMOGLOBIN 9.5 % (0.0-5.0); BG FRACTION INSPIRED OXYGEN 70; BG HCO3 ACT 15.9 mmol/L (21.0-28.0); BG METHEMOGLOBIN 0.3 % (0.5-1.5); BG OXYGEN SATURATION 90.4 % (94.0-98.0); BG OXYHEMOGLOBIN 89.7 % (94.0-98.0); BG PCO2 42.4 mmHg (35.0-48.0); BG PEEP (cmH2O) 5.0 cmH2O; BG PH 7.191 (7.350-7.450); BG PO2 58.7 mmHg (83.0-108.0); BG SAMPLE SITE RIGHT RADIAL; BG TIDAL VOLUME(mL) 450.0 mL; BG TOTAL HEMOGLOBIN 8.6 g/dL (13.5-17.5); BG VENT MODE VENT - AC; BG VENT RATE 28.0 set
[2025-01-19 12:03] LABS: HEMATOCRIT. 22.8 % (42.0-52.0); HEMOGLOBIN. 7.5 g/dL (14.0-18.0); MEAN PLATELET VOLUME 10.7 fl (7.4-10.4); PLATELET 76 x1000/uL (130-400); RED BLOOD CELL COUNT 2.59 mill/uL (4.7-6.1); RED CELL DISTRIBUTION WIDTH 19.8 % (11.6-14.6)
[2025-01-19 12:23] LABS: CREATININE 2.0 mg/dL (0.6-1.3); UREA NITROGEN BLOOD 61 mg/dL (9-23)
[2025-01-19 12:24] LABS: ASPARTATE AMINOTRANSFERASE 119 IU/L (<34); PROTEIN TOTAL 4.1 g/dL (6.0-8.3)
[2025-01-19 12:25] LABS: BILIRUBIN TOTAL 0.5 mg/dL (0.1-1.0)
[2025-01-19] MEDS: NOREPINEPHRINE 8MG/250ML PMX 250 ML IV PRN (12:29)
[2025-01-19] MEDS: SODIUM BICARBONATE 8.4% 50MEQ/50ML SYR IV ONE (14:46)
[2025-01-19] MEDS: SODIUM BICARBONATE 8.4% 50MEQ/50ML SYR IV NR (14:49)
[2025-01-19] MEDS: DEXT 10% WATER 1,000 ML IV SCH (14:50)
[2025-01-19] MEDS: ALBUTEROL (0.083%) 2.5MG/3ML NEB HHN SCH (15:59)
[2025-01-19] MEDS: ACETYLCYSTEINE 200MG/ML 20% VIAL 4ML INH SCH (15:59)
[2025-01-19 17:45] LABS: BG BASE EXCESS -7.5 mmol/L (-2.0-3.0); BG CARBOXYHEMOGLOBIN 1.1 % (0.5-1.5); BG DEOXYHEMOGLOBIN 13.3 % (0.0-5.0); BG FRACTION INSPIRED OXYGEN 80; BG HCO3 ACT 19.8 mmol/L (21.0-28.0); BG METHEMOGLOBIN 0.3 % (0.5-1.5); BG OXYGEN SATURATION 86.5 % (94.0-98.0); BG OXYHEMOGLOBIN 85.3 % (94.0-98.0); BG PCO2 49.6 mmHg (35.0-48.0); BG PEEP (cmH2O) 5.0 cmH2O; BG PH 7.219 (7.350-7.450); BG PO2 51.0 mmHg (83.0-108.0); BG SAMPLE SITE RIGHT RADIAL; BG TIDAL VOLUME(mL) 400.0 mL; BG TOTAL HEMOGLOBIN 7.6 g/dL (13.5-17.5); BG VENT MODE VENT - AC; BG VENT RATE 20.0 set
[2025-01-19] MEDS: SODIUM BICARBONATE 8.4% 50MEQ/50ML SYR IV SCH (19:01)
[2025-01-19 23:26] LABS: BAND% 39.0 % (1.0-6.0); LYMPHOCYTES % MANUAL 5.0 % (20.0-50.0); MONOCYTES % MANUAL 2.0 % (2.0-8.0); NEUTROPHILS % MANUAL 54.0 % (45.0-75.0); NUCLEATED RED BLOOD CELLS 6 /100 WBC; PLATELET ESTIMATE MARKEDLY DECREASED
[2025-01-20] VITALS (111 sets, daily range): BP systolic 57–157; BP diastolic 38–87; PULSE 58–76; RESP 0–25; TEMP 36.16956–36.78072; O2SAT 94–100
[2025-01-20] MEDS: MIDAZOLAM 100MG/100ML PMX 100 ML IV PRN (00:30)
[2025-01-20] MEDS: VANCOMYCIN 750MG PREMIX 150 ML IV SCH (00:30)
[2025-01-20] MEDS: FENTANYL 2500MCG/250ML PMX 250 ML IV PRN (00:31)
[2025-01-20 05:14] LABS: MEAN PLATELET VOLUME 11.1 fl (7.4-10.4); PLATELET 69 x1000/uL (130-400); RED BLOOD CELL COUNT 2.33 mill/uL (4.7-6.1); RED CELL DISTRIBUTION WIDTH 19.1 % (11.6-14.6)
[2025-01-20 05:35] LABS: PROTEIN TOTAL 4.1 g/dL (6.0-8.3)
[2025-01-20 05:37] LABS: ASPARTATE AMINOTRANSFERASE 116 IU/L (<34); BILIRUBIN DIRECT 0.4 mg/dL (<=3.0); BILIRUBIN TOTAL 0.5 mg/dL (0.1-1.0)
[2025-01-20 06:52] LABS: HEMATOCRIT. 20.2 % (42.0-52.0); HEMOGLOBIN. 6.6 g/dL (14.0-18.0)
[2025-01-20] MEDS ORDERED: NON FORMULARY MED XX SCH (08:00)
[2025-01-20] MEDS ORDERED: LIDOCAINE HCL 1% 10 MG/ML 10ML VIAL ONE (08:36)
[2025-01-20 08:49] LABS: CREATININE 2.3 mg/dL (0.6-1.3); TRIGLYCERIDE 60.0 mg/dL (0-150); UREA NITROGEN BLOOD 61.0 mg/dL (9-23)
[2025-01-20] MEDS: METOCLOPRAMIDE HCL 10MG/2ML VIAL IV SCH (10:31)
[2025-01-20] MEDS: IRON SUCROSE COMPLEX 100 MG/5 ML ML IV SCH (10:31)
[2025-01-20 12:01] LABS: BG BASE EXCESS -7.3 mmol/L (-2.0-3.0); BG CARBOXYHEMOGLOBIN 1.5 % (0.5-1.5); BG DEOXYHEMOGLOBIN 4.9 % (0.0-5.0); BG FRACTION INSPIRED OXYGEN 80; BG HCO3 ACT 20.6 mmol/L (21.0-28.0); BG METHEMOGLOBIN 0.3 % (0.5-1.5); BG OXYGEN SATURATION 95.0 % (94.0-98.0); BG OXYHEMOGLOBIN 93.3 % (94.0-98.0); BG PCO2 55.0 mmHg (35.0-48.0); BG PEEP (cmH2O) 5.0 cmH2O; BG PH 7.192 (7.350-7.450); BG PO2 75.0 mmHg (83.0-108.0); BG SAMPLE SITE RIGHT RADIAL; BG TIDAL VOLUME(mL) 400.0 mL; BG TOTAL HEMOGLOBIN 8.5 g/dL (13.5-17.5); BG VENT MODE VENT - AC; BG VENT RATE 20.0 set
[2025-01-20 14:05] LABS: ATYPICAL LYMPHOCYTES 1; BAND% 32.0 % (1.0-6.0); LYMPHOCYTES % MANUAL 1.0 % (20.0-50.0); METAMYELOCYTES % 30.0 % (0-0); MONOCYTES % MANUAL 1.0 % (2.0-8.0); MYELOCYTES % 6.0 % (0-0); NEUTROPHILS % MANUAL 29.0 % (45.0-75.0); NUCLEATED RED BLOOD CELLS 1 /100 WBC
[2025-01-20 14:06] LABS: PLATELET ESTIMATE MARKEDLY DECREASED
[2025-01-20] MEDS: SODIUM BICARBONATE 8.4% 50MEQ/50ML SYR IV SCH (15:06)
[2025-01-20] MEDS: SODIUM CHLORIDE 0.9% 1,000 ML IV SCH (15:07)
[2025-01-20 20:38] LABS: CLARITY URINE CLOUDY (CLEAR); COLOR URINE ORANGE (YELLOW); GLUCOSE URINE TRACE (NEGATIVE); KETONES URINE NEGATIVE (NEGATIVE); LEUKOCYTE ESTERASE URINE TRACE (NEGATIVE); NITRITE URINE NEGATIVE (NEGATIVE); OCCULT BLOOD URINE 3+ (NEGATIVE); PH URINE 6.0 (4.5-8.0); PROTEIN URINE 3+ (NEGATIVE); SPECIFIC GRAVITY URINE 1.013 (1.005-1.030); UROBILINOGEN URINE 0.2 E.U./dL (0.2-1.0)
[2025-01-20 20:47] LABS: BACTERIA URINE TRACE; SQUAMOUS EPITHELIAL CELL URINE 1+ /lpf (RARE/1+)
[2025-01-20 22:56] LABS: HEMATOCRIT. 23.7 % (42.0-52.0); HEMOGLOBIN. 8.1 g/dL (14.0-18.0); MEAN PLATELET VOLUME 9.7 fl (7.4-10.4); PLATELET 80 x1000/uL (130-400); RED BLOOD CELL COUNT 2.82 mill/uL (4.7-6.1); RED CELL DISTRIBUTION WIDTH 17.7 % (11.6-14.6)
[2025-01-21] VITALS (114 sets, daily range): BP systolic 79–184; BP diastolic 52–84; PULSE 52–79; RESP 16–21; TEMP 36.3918–36.6; O2SAT 95–100
[2025-01-21 00:10] LABS: BAND% 23.0 % (1.0-6.0); EOSINOPHILS % MANUAL 1.0 % (0.0-5.0); LYMPHOCYTES % MANUAL 2.0 % (20.0-50.0); METAMYELOCYTES % 7.0 % (0-0); MONOCYTES % MANUAL 3.0 % (2.0-8.0); MYELOCYTES % 9.0 % (0-0); NEUTROPHILS % MANUAL 55.0 % (45.0-75.0); NUCLEATED RED BLOOD CELLS 1 /100 WBC; PLATELET ESTIMATE DECREASED
[2025-01-21 05:36] LABS: INR 1.2
[2025-01-21 05:42] LABS: CREATININE 1.8 mg/dL (0.6-1.3)
[2025-01-21 05:43] LABS: UREA NITROGEN BLOOD 47 mg/dL (9-23)
[2025-01-21 05:48] LABS: HEMATOCRIT. 24.4 % (42.0-52.0); HEMOGLOBIN. 8.2 g/dL (14.0-18.0); MEAN PLATELET VOLUME 11.3 fl (7.4-10.4); PLATELET 52 x1000/uL (130-400); RED BLOOD CELL COUNT 2.86 mill/uL (4.7-6.1); RED CELL DISTRIBUTION WIDTH 18.0 % (11.6-14.6)
[2025-01-21 10:05] LABS: BG BASE EXCESS 1.0 mmol/L (-2.0-3.0); BG CARBOXYHEMOGLOBIN 1.0 % (0.5-1.5); BG DEOXYHEMOGLOBIN 9.7 % (0.0-5.0); BG FRACTION INSPIRED OXYGEN 50; BG HCO3 ACT 27.8 mmol/L (21.0-28.0); BG METHEMOGLOBIN 0.3 % (0.5-1.5); BG OXYGEN SATURATION 90.2 % (94.0-98.0); BG OXYHEMOGLOBIN 89.0 % (94.0-98.0); BG PCO2 57.3 mmHg (35.0-48.0); BG PEEP (cmH2O) 5.0 cmH2O; BG PH 7.304 (7.350-7.450); BG PO2 56.5 mmHg (83.0-108.0); BG SAMPLE SITE RIGHT RADIAL; BG TIDAL VOLUME(mL) 400.0 mL; BG TOTAL HEMOGLOBIN 8.5 g/dL (13.5-17.5); BG TOTAL RESPIRATORY RATE 20 b/min; BG VENT MODE VENT - AC; BG VENT RATE 20.0 set
[2025-01-21 11:09] LABS: BAND% 37.0 % (1.0-6.0); LYMPHOCYTES % MANUAL 3.0 % (20.0-50.0); METAMYELOCYTES % 8.0 % (0-0); MONOCYTES % MANUAL 6.0 % (2.0-8.0); MYELOCYTES % 7.0 % (0-0); NEUTROPHILS % MANUAL 39.0 % (45.0-75.0); NUCLEATED RED BLOOD CELLS 2 /100 WBC; PLATELET ESTIMATE MARKEDLY DECREASED
[2025-01-21] MEDS: CALCIUM GLUCONATE 1,000 MG in DEXT 5% WATER 100 ML IV NR (18:37)
[2025-01-22] VITALS (121 sets, daily range): BP systolic 77–163; BP diastolic 47–85; PULSE 55–99; RESP 16–21; TEMP 33.78048–36.6; O2SAT 88–100
[2025-01-22] MEDS: PIPERACILLIN/TAZO 3.375G/50ML IV SCH (01:08)
[2025-01-22] MEDS ORDERED: DESMOPRESSIN ACETATE 4MCG/ML AMP IV ONE (07:00)
[2025-01-22 07:32] LABS: RED BLOOD CELL COUNT 2.24 mill/uL (4.7-6.1); RED CELL DISTRIBUTION WIDTH 17.9 % (11.6-14.6)
[2025-01-22 07:38] LABS: CREATININE 2.1 mg/dL (0.6-1.3); UREA NITROGEN BLOOD 48.0 mg/dL (9-23)
[2025-01-22 07:51] LABS: INR 1.1
[2025-01-22 08:24] LABS: HEMATOCRIT. 18.9 % (42.0-52.0); HEMOGLOBIN. 6.6 g/dL (14.0-18.0); MEAN PLATELET VOLUME 9.7 fl (7.4-10.4); PLATELET 52 x1000/uL (130-400)
[2025-01-22] MEDS: DESMOPRESSIN ACETATE 22 MCG in SODIUM CHLORIDE 0.9% 50 ML IV SCH (09:19)
[2025-01-22 11:25] LABS: RED BLOOD CELL COUNT 2.09 mill/uL (4.7-6.1); RED CELL DISTRIBUTION WIDTH 17.6 % (11.6-14.6)
[2025-01-22 11:38] LABS: HEMATOCRIT. 17.7 % (42.0-52.0); HEMOGLOBIN. 6.0 g/dL (14.0-18.0)
[2025-01-22 11:39] LABS: MEAN PLATELET VOLUME 11.0 fl (7.4-10.4); PLATELET 51 x1000/uL (130-400)
[2025-01-22 11:45] LABS: CREATININE 2.2 mg/dL (0.6-1.3); UREA NITROGEN BLOOD 49.0 mg/dL (9-23)
[2025-01-22] MEDS: PHYTONADIONE 10 MG in DEXTROSE 5% WATER 50 ML IV SCH (18:33)
[2025-01-22] MEDS: VANCOMYCIN 500MG PREMIX 100 ML IV SCH (21:18)
[2025-01-23] VITALS (111 sets, daily range): BP systolic 51–158; BP diastolic 38–99; PULSE 87–108; RESP 0–21; TEMP 35.8–36.4; O2SAT 94–100
[2025-01-23 05:26] LABS: HEMATOCRIT. 23.7 % (42.0-52.0); HEMOGLOBIN. 7.9 g/dL (14.0-18.0); MEAN PLATELET VOLUME 10.3 fl (7.4-10.4); PLATELET 80 x1000/uL (130-400); RED BLOOD CELL COUNT 2.72 mill/uL (4.7-6.1); RED CELL DISTRIBUTION WIDTH 16.6 % (11.6-14.6)
[2025-01-23 05:40] LABS: CREATININE 2.0 mg/dL (0.6-1.3); UREA NITROGEN BLOOD 35.0 mg/dL (9-23)
[2025-01-23 13:34] LABS: BAND% 51.0 % (1.0-6.0); METAMYELOCYTES % 4.0 % (0-0); MONOCYTES % MANUAL 1.0 % (2.0-8.0); MYELOCYTES % 3.0 % (0-0); NEUTROPHILS % MANUAL 41.0 % (45.0-75.0); PLATELET ESTIMATE DECREASED
[2025-01-23 16:28] LABS: BAND% 13.0 % (1.0-6.0); LYMPHOCYTES % MANUAL 3.0 % (20.0-50.0); MONOCYTES % MANUAL 7.0 % (2.0-8.0); NEUTROPHILS % MANUAL 77.0 % (45.0-75.0); NUCLEATED RED BLOOD CELLS 3 /100 WBC; PLATELET ESTIMATE DECREASED
[2025-01-23 16:31] LABS: BAND% 3.0 % (1.0-6.0); LYMPHOCYTES % MANUAL 4.0 % (20.0-50.0); MONOCYTES % MANUAL 3.0 % (2.0-8.0); NEUTROPHILS % MANUAL 90.0 % (45.0-75.0); NUCLEATED RED BLOOD CELLS 2 /100 WBC; PLATELET ESTIMATE DECREASED
[2025-01-23 17:15] LABS: HEMATOCRIT. 23.4 % (42.0-52.0); HEMOGLOBIN. 7.9 g/dL (14.0-18.0); MEAN PLATELET VOLUME 10.2 fl (7.4-10.4); PLATELET 77 x1000/uL (130-400); RED BLOOD CELL COUNT 2.69 mill/uL (4.7-6.1); RED CELL DISTRIBUTION WIDTH 16.5 % (11.6-14.6)
[2025-01-23 17:31] LABS: CREATININE 2.3 mg/dL (0.6-1.3); UREA NITROGEN BLOOD 40.0 mg/dL (9-23)
[2025-01-23 17:45] LABS: LYMPHOCYTES % MANUAL 2.0 % (20.0-50.0); MONOCYTES % MANUAL 3.0 % (2.0-8.0); NEUTROPHILS % MANUAL 95.0 % (45.0-75.0); PLATELET ESTIMATE DECREASED
[2025-01-24] VITALS (110 sets, daily range): BP systolic 72–170; BP diastolic 42–104; PULSE 77–123; RESP 0–21; TEMP 36.05844–36.16956; O2SAT 92–100
[2025-01-24 05:11] LABS: CREATININE 2.5 mg/dL (0.6-1.3); UREA NITROGEN BLOOD 45.0 mg/dL (9-23)
[2025-01-24 06:11] LABS: HEMATOCRIT. 21.1 % (42.0-52.0); MEAN PLATELET VOLUME 10.2 fl (7.4-10.4); PLATELET 70 x1000/uL (130-400); RED BLOOD CELL COUNT 2.43 mill/uL (4.7-6.1); RED CELL DISTRIBUTION WIDTH 17.2 % (11.6-14.6)
[2025-01-24 06:21] LABS: HEMOGLOBIN. 6.9 g/dL (14.0-18.0)
[2025-01-24 10:20] LABS: BAND% 10.0 % (1.0-6.0); LYMPHOCYTES % MANUAL 2.0 % (20.0-50.0); MONOCYTES % MANUAL 1.0 % (2.0-8.0); NEUTROPHILS % MANUAL 87.0 % (45.0-75.0); NUCLEATED RED BLOOD CELLS 4 /100 WBC
[2025-01-24 10:21] LABS: PLATELET ESTIMATE DECREASED
[2025-01-24] MEDS ORDERED: MIDAZOLAM 100MG/100ML PMX 100 ML IV PRN (14:00)
[2025-01-24] MEDS: DEXT 5%/0.9% NACL 1,000 ML IV SCH (16:04)
[2025-01-24] MEDS: INSULIN LISPRO 100 UNITS/ML SUBCUT SCH (20:00)
[2025-01-25] VITALS (112 sets, daily range): BP systolic 56–196; BP diastolic 38–94; PULSE 71–98; RESP 0–23; TEMP 34.61388–36; O2SAT 90–100
[2025-01-25 06:23] LABS: CREATININE 2.4 mg/dL (0.6-1.3); UREA NITROGEN BLOOD 42.0 mg/dL (9-23)
[2025-01-25 06:28] LABS: HEMATOCRIT. 25.0 % (42.0-52.0); HEMOGLOBIN. 8.5 g/dL (14.0-18.0); MEAN PLATELET VOLUME 9.2 fl (7.4-10.4); RED BLOOD CELL COUNT 2.92 mill/uL (4.7-6.1); RED CELL DISTRIBUTION WIDTH 21.3 % (11.6-14.6)
[2025-01-25 07:33] LABS: PLATELET 47 x1000/uL (130-400)
[2025-01-25 10:47] LABS: BAND% 11.0 % (1.0-6.0); LYMPHOCYTES % MANUAL 1.0 % (20.0-50.0); MONOCYTES % MANUAL 2.0 % (2.0-8.0); NEUTROPHILS % MANUAL 86.0 % (45.0-75.0); NUCLEATED RED BLOOD CELLS 1 /100 WBC; PLATELET ESTIMATE MARKEDLY DECREASED
[2025-01-25 10:59] LABS: BG BASE EXCESS -3.3 mmol/L (-2.0-3.0); BG CARBOXYHEMOGLOBIN 1.6 % (0.5-1.5); BG DEOXYHEMOGLOBIN 5.3 % (0.0-5.0); BG FRACTION INSPIRED OXYGEN 60; BG HCO3 ACT 23.3 mmol/L (21.0-28.0); BG METHEMOGLOBIN 0.1 % (0.5-1.5); BG OXYGEN SATURATION 94.6 % (94.0-98.0); BG OXYHEMOGLOBIN 93.0 % (94.0-98.0); BG PCO2 49.8 mmHg (35.0-48.0); BG PEEP (cmH2O) 5.0 cmH2O; BG PH 7.288 (7.350-7.450); BG PO2 74.6 mmHg (83.0-108.0); BG SAMPLE SITE RIGHT RADIAL; BG TIDAL VOLUME(mL) 400.0 mL; BG TOTAL HEMOGLOBIN 8.4 g/dL (13.5-17.5); BG TOTAL RESPIRATORY RATE 20 b/min; BG VENT MODE VENT - AC; BG VENT RATE 20.0 set
[2025-01-26] VITALS (108 sets, daily range): BP systolic 93–156; BP diastolic 47–75; PULSE 72–91; RESP 12–27; TEMP 35–36.3918; O2SAT 91–100
[2025-01-26] MEDS: ACETAMINOPHEN 325MG TABLET PO PRN (03:00)
[2025-01-26 06:00] LABS: MEAN PLATELET VOLUME 8.9 fl (7.4-10.4); RED BLOOD CELL COUNT 2.20 mill/uL (4.7-6.1); RED CELL DISTRIBUTION WIDTH 20.9 % (11.6-14.6)
[2025-01-26 06:27] LABS: CREATININE 3.0 mg/dL (0.6-1.3)
[2025-01-26 06:28] LABS: UREA NITROGEN BLOOD 55 mg/dL (9-23)
[2025-01-26 06:50] LABS: HEMATOCRIT. 18.9 % (42.0-52.0); HEMOGLOBIN. 6.2 g/dL (14.0-18.0); PLATELET 39 x1000/uL (130-400)
[2025-01-26] MEDS: VANCOMYCIN 500MG/100ML IV SCH (21:14)
[2025-01-27] VITALS (110 sets, daily range): BP systolic 62–208; BP diastolic 39–96; PULSE 71–113; RESP 13–26; TEMP 35.05836–37.3; O2SAT 93–100
[2025-01-27 01:25] LABS: LYMPHOCYTES % MANUAL 2.0 % (20.0-50.0); MONOCYTES % MANUAL 2.0 % (2.0-8.0); NEUTROPHILS % MANUAL 96.0 % (45.0-75.0); PLATELET ESTIMATE DECREASED
[2025-01-27 05:36] LABS: RED BLOOD CELL COUNT 2.90 mill/uL (4.7-6.1); RED CELL DISTRIBUTION WIDTH 18.5 % (11.6-14.6)
[2025-01-27 05:51] LABS: PLATELET 27 x1000/uL (130-400)
[2025-01-27 05:56] LABS: CREATININE 2.6 mg/dL (0.6-1.3)
[2025-01-27 05:57] LABS: UREA NITROGEN BLOOD 43.0 mg/dL (9-23)
[2025-01-27 10:09] LABS: BG BASE EXCESS -0.2 mmol/L (-2.0-3.0); BG CARBOXYHEMOGLOBIN 0.9 % (0.5-1.5); BG DEOXYHEMOGLOBIN 7.7 % (0.0-5.0); BG FRACTION INSPIRED OXYGEN 50; BG HCO3 ACT 25.8 mmol/L (21.0-28.0); BG METHEMOGLOBIN 0.0 % (0.5-1.5); BG OXYGEN SATURATION 92.2 % (94.0-98.0); BG OXYHEMOGLOBIN 91.4 % (94.0-98.0); BG PCO2 49.0 mmHg (35.0-48.0); BG PEEP (cmH2O) 5.0 cmH2O; BG PH 7.340 (7.350-7.450); BG PO2 63.6 mmHg (83.0-108.0); BG SAMPLE SITE RIGHT RADIAL; BG TIDAL VOLUME(mL) 400.0 mL; BG TOTAL HEMOGLOBIN 9.7 g/dL (13.5-17.5); BG VENT MODE VENT - AC; BG VENT RATE 20.0 set
[2025-01-27] MEDS: HEMORRHOIDAL SUPP PR NR (14:08)
[2025-01-28] VITALS (109 sets, daily range): BP systolic 86–179; BP diastolic 44–78; PULSE 77–109; RESP 0–23; TEMP 32.7804–36.6696; O2SAT 97–100
[2025-01-28] MEDS: IOHEXOL-350 100 ML BOTTLE ONE (14:56)
[2025-01-28 16:40] LABS: RED BLOOD CELL COUNT 2.10 mill/uL (4.7-6.1); RED CELL DISTRIBUTION WIDTH 18.9 % (11.6-14.6)
[2025-01-28 16:51] LABS: PLATELET 28 x1000/uL (130-400)
[2025-01-28 17:00] LABS: CREATININE 3.2 mg/dL (0.6-1.3)
[2025-01-28 17:01] LABS: UREA NITROGEN BLOOD 49.0 mg/dL (9-23)
[2025-01-28] MEDS: VANCOMYCIN 500MG/100ML IV SCH (20:51)
[2025-01-29] VITALS (110 sets, daily range): BP systolic 77–162; BP diastolic 40–85; PULSE 71–92; RESP 0–22; TEMP 35.72508–37.16964; O2SAT 92–100
[2025-01-29 05:43] LABS: MEAN PLATELET VOLUME 8.9 fl (7.4-10.4); RED BLOOD CELL COUNT 2.15 mill/uL (4.7-6.1); RED CELL DISTRIBUTION WIDTH 17.0 % (11.6-14.6)
[2025-01-29 06:06] LABS: CREATININE 2.4 mg/dL (0.6-1.3); UREA NITROGEN BLOOD 41 mg/dL (9-23)
[2025-01-29 06:08] LABS: PHOSPHORUS 4.5 mg/dL (2.5-4.9)
[2025-01-29 06:53] LABS: HEMOGLOBIN. 6.4 g/dL (14.0-18.0); PLATELET 19 x1000/uL (130-400)
[2025-01-29 06:54] LABS: HEMATOCRIT. 18.5 % (42.0-52.0)
[2025-01-29 08:32] LABS: BAND% 14.0 % (1.0-6.0); LYMPHOCYTES % MANUAL 1.0 % (20.0-50.0); MONOCYTES % MANUAL 2.0 % (2.0-8.0); NEUTROPHILS % MANUAL 83.0 % (45.0-75.0); NUCLEATED RED BLOOD CELLS 2 /100 WBC; PLATELET ESTIMATE MARKEDLY DECREASED
[2025-01-29] MEDS ORDERED: VASOPRESSIN 20 UNIT in SODIUM CHLORIDE 0.9% 99 ML IV SCH (18:00)
[2025-01-29] MEDS: OCTREOTIDE 1,000 MCG in SODIUM CHLORIDE 0.9% 98 ML IV SCH (18:15)
[2025-01-30] VITALS (110 sets, daily range): BP systolic 107–169; BP diastolic 51–87; PULSE 65–92; RESP 0–26; TEMP 35.78064–36.6696; O2SAT 10–100
[2025-01-30 08:53] LABS: CREATININE 3.1 mg/dL (0.6-1.3); UREA NITROGEN BLOOD 46.0 mg/dL (9-23)
[2025-01-30] MEDS: INSULIN LISPRO 100 UNITS/ML SUBCUT SCH (09:00)
[2025-01-30] MEDS: BLOOD SUGAR DIAGNOSTIC STRIP TEST SCH (09:38)
[2025-01-30 11:39] LABS: HEMATOCRIT. 22.9 % (42.0-52.0); HEMOGLOBIN. 7.4 g/dL (14.0-18.0); MEAN PLATELET VOLUME 9.5 fl (7.4-10.4); PLATELET 60 x1000/uL (130-400); RED BLOOD CELL COUNT 2.67 mill/uL (4.7-6.1); RED CELL DISTRIBUTION WIDTH 17.3 % (11.6-14.6)
[2025-01-30 14:01] LABS: BAND% 6.0 % (1.0-6.0); LYMPHOCYTES % MANUAL 6.0 % (20.0-50.0); MONOCYTES % MANUAL 4.0 % (2.0-8.0); NEUTROPHILS % MANUAL 84.0 % (45.0-75.0); PLATELET ESTIMATE DECREAS
[2025-01-30] MEDS: VANCOMYCIN 500MG PREMIX 100 ML IV SCH (14:52)
[2025-01-30] MEDS: ALBUTEROL (0.083%) 2.5MG/3ML NEB HHN SCH (23:16)
[2025-01-31] VITALS (106 sets, daily range): BP systolic 97–132; BP diastolic 49–82; PULSE 56–82; RESP 9–23; TEMP 35.0028–35.22504; O2SAT 94–100
[2025-01-31 10:16] LABS: HEMATOCRIT. 22.3 % (42.0-52.0); HEMOGLOBIN. 7.5 g/dL (14.0-18.0); MEAN PLATELET VOLUME 10.2 fl (7.4-10.4); PLATELET 69 x1000/uL (130-400); RED BLOOD CELL COUNT 2.63 mill/uL (4.7-6.1); RED CELL DISTRIBUTION WIDTH 16.7 % (11.6-14.6)
[2025-01-31 10:34] LABS: CREATININE 2.6 mg/dL (0.6-1.3)
[2025-01-31 10:35] LABS: UREA NITROGEN BLOOD 44.0 mg/dL (9-23)
[2025-01-31 10:47] LABS: BAND% 9.0 % (1.0-6.0); LYMPHOCYTES % MANUAL 5.0 % (20.0-50.0); MONOCYTES % MANUAL 4.0 % (2.0-8.0); NEUTROPHILS % MANUAL 82.0 % (45.0-75.0); PLATELET ESTIMATE DECREASED
[2025-02-01] VITALS (112 sets, daily range): BP systolic 83–133; BP diastolic 49–78; PULSE 56–88; RESP 0–24; TEMP 35.1–35.78064; O2SAT 94–100
[2025-02-01 06:28] LABS: HEMATOCRIT. 27.3 % (42.0-52.0); HEMOGLOBIN. 9.1 g/dL (14.0-18.0); MEAN PLATELET VOLUME 10.3 fl (7.4-10.4); PLATELET 85 x1000/uL (130-400); RED BLOOD CELL COUNT 3.16 mill/uL (4.7-6.1); RED CELL DISTRIBUTION WIDTH 16.5 % (11.6-14.6)
[2025-02-01 06:39] LABS: CREATININE 3.0 mg/dL (0.6-1.3)
[2025-02-01 06:40] LABS: UREA NITROGEN BLOOD 52.0 mg/dL (9-23)
[2025-02-01 11:59] LABS: BAND% 6.0 % (1.0-6.0); EOSINOPHILS % MANUAL 1.0 % (0.0-5.0); LYMPHOCYTES % MANUAL 2.0 % (20.0-50.0); MONOCYTES % MANUAL 1.0 % (2.0-8.0); NEUTROPHILS % MANUAL 90.0 % (45.0-75.0)
[2025-02-01 12:00] LABS: PLATELET ESTIMATE SLIGHTLY DECREASED
[2025-02-01] MEDS: VANCOMYCIN 500MG/100ML IV SCH (18:14)
[2025-02-02] VITALS (97 sets, daily range): BP systolic 82–142; BP diastolic 44–72; PULSE 59–88; RESP 0–29; TEMP 35.8–37; O2SAT 91–100
[2025-02-02 05:39] LABS: CREATININE 2.7 mg/dL (0.6-1.3)
[2025-02-02 05:40] LABS: UREA NITROGEN BLOOD 50 mg/dL (9-23)
[2025-02-02 05:41] LABS: LACTATE DEHYDROGENASE 398 IU/L (120-246)
[2025-02-02 07:20] LABS: HEMATOCRIT. 27.4 % (42.0-52.0); HEMOGLOBIN. 9.0 g/dL (14.0-18.0); MEAN PLATELET VOLUME 10.4 fl (7.4-10.4); PLATELET 93 x1000/uL (130-400); RED BLOOD CELL COUNT 3.18 mill/uL (4.7-6.1); RED CELL DISTRIBUTION WIDTH 16.3 % (11.6-14.6)
[2025-02-02] MEDS: MULTIVITAMINS,THER W-MINERALS TABLET PO SCH (09:35)
[2025-02-02 13:09] LABS: BAND% 40.0 % (1.0-6.0); LYMPHOCYTES % MANUAL 8.0 % (20.0-50.0); NEUTROPHILS % MANUAL 52.0 % (45.0-75.0); PLATELET ESTIMATE SLIGHTLY DECREASED
[2025-02-02] MEDS: ALBUMIN HUMAN 25GM/500ML (5%) IV SCH (13:20)
[2025-02-03] VITALS (82 sets, daily range): BP systolic 66–168; BP diastolic 44–94; PULSE 63–88; RESP 0–21; TEMP 36.3; O2SAT 84–100
[2025-02-03 06:04] LABS: HEMATOCRIT. 25.3 % (42.0-52.0); HEMOGLOBIN. 8.4 g/dL (14.0-18.0); MEAN PLATELET VOLUME 10.9 fl (7.4-10.4); PLATELET 109 x1000/uL (130-400); RED BLOOD CELL COUNT 2.88 mill/uL (4.7-6.1); RED CELL DISTRIBUTION WIDTH 16.8 % (11.6-14.6)
[2025-02-03 06:25] LABS: CREATININE 3.1 mg/dL (0.6-1.3)
[2025-02-03 06:26] LABS: UREA NITROGEN BLOOD 52.0 mg/dL (9-23)
[2025-02-03 09:06] LABS: BAND% 45.0 % (1.0-6.0); EOSINOPHILS % MANUAL 2.0 % (0.0-5.0); LYMPHOCYTES % MANUAL 17.0 % (20.0-50.0); MONOCYTES % MANUAL 9.0 % (2.0-8.0); NEUTROPHILS % MANUAL 27.0 % (45.0-75.0); NUCLEATED RED BLOOD CELLS 1 /100 WBC; PLATELET ESTIMATE DECREASED
[2025-02-04] VITALS (99 sets, daily range): BP systolic 74–129; BP diastolic 30–90; PULSE 64–135; RESP 10–20; TEMP 36.1–36.8; O2SAT 87–100
[2025-02-04] MEDS: MIDODRINE HCL 5MG TABLET PO SCH (15:19)
[2025-02-05] VITALS (112 sets, daily range): BP systolic 35–150; BP diastolic 11–101; PULSE 80–142; RESP 20–27; TEMP 35.7–36.7; O2SAT 91–100
[2025-02-05 05:12] LABS: HEMATOCRIT. 30.1 % (42.0-52.0); HEMOGLOBIN. 10.0 g/dL (14.0-18.0); RED BLOOD CELL COUNT 3.51 mill/uL (4.7-6.1); RED CELL DISTRIBUTION WIDTH 17.0 % (11.6-14.6)
[2025-02-05 05:26] LABS: CREATININE 3.5 mg/dL (0.6-1.3); UREA NITROGEN BLOOD 70.0 mg/dL (9-23)
[2025-02-05] MEDS: ALBUTEROL (0.083%) 2.5MG/3ML NEB HHN SCH (10:13)
[2025-02-05] MEDS: VASOPRESSIN 20 UNIT in SODIUM CHLORIDE 0.9% 99 ML IV PRN (10:25)
[2025-02-05 10:57] LABS: BG BASE EXCESS -15.1 mmol/L (-2.0-3.0); BG CARBOXYHEMOGLOBIN 2.1 % (0.5-1.5); BG DEOXYHEMOGLOBIN 22.5 % (0.0-5.0); BG FRACTION INSPIRED OXYGEN 50; BG HCO3 ACT 18.5 mmol/L (21.0-28.0); BG METHEMOGLOBIN 0.1 % (0.5-1.5); BG OXYGEN SATURATION 77.0 % (94.0-98.0); BG OXYHEMOGLOBIN 75.3 % (94.0-98.0); BG PCO2 90.9 mmHg (35.0-48.0); BG PEEP (cmH2O) 5.0 cmH2O; BG PH 6.927 (7.350-7.450); BG PO2 52.4 mmHg (83.0-108.0); BG SAMPLE SITE RIGHT RADIAL; BG TIDAL VOLUME(mL) 400.0 mL; BG TOTAL HEMOGLOBIN 12.3 g/dL (13.5-17.5); BG VENT MODE VENT - AC/PRVC; BG VENT RATE 20.0 set
[2025-02-05] MEDS: SODIUM BICARBONATE 8.4% 50MEQ/50ML SYR IV SCH (11:12)
[2025-02-05 11:38] LABS: BAND% 44.0 % (1.0-6.0); LYMPHOCYTES % MANUAL 17.0 % (20.0-50.0); MONOCYTES % MANUAL 4.0 % (2.0-8.0); NEUTROPHILS % MANUAL 35.0 % (45.0-75.0)
[2025-02-05 11:45] LABS: PLATELET 139 x1000/uL (130-400)
[2025-02-05 11:46] LABS: PLATELET ESTIMATE NORMAL
[2025-02-05] MEDS ORDERED: ALBUTEROL (0.083%) 2.5MG/3ML NEB HHN SCH ×2 (12:00)
[2025-02-05] MEDS: VANCOMYCIN 500MG PREMIX 100 ML IV SCH (13:32)
[2025-02-05] MEDS: METOCLOPRAMIDE HCL 10MG/2ML VIAL IV SCH (17:13)
[2025-02-06] VITALS (97 sets, daily range): BP systolic 0–163; BP diastolic 0–94; PULSE 0–114; RESP 0–21; TEMP 35.5–36.3; O2SAT 0–100
[2025-02-06 09:32] LABS: RED BLOOD CELL COUNT 3.45 mill/uL (4.7-6.1); RED CELL DISTRIBUTION WIDTH 17.7 % (11.6-14.6)
[2025-02-06 09:33] LABS: PLATELET 74 x1000/uL (130-400)
[2025-02-06 12:33] LABS: CREATININE 3.4 mg/dL (0.6-1.3); UREA NITROGEN BLOOD 67.0 mg/dL (9-23)
[2025-02-14 04:07] LABS: DIRECTOR REVIEW Comment: (.); FISH RESULTS Comment: (.)
== END 2025-02-06 21:31 | DRG 870 ==
LOC: ER 14:56 → CVICU 17:41 → EDBEDREQ 17:44 → EDBEDREQTM 17:44 → EDBEDREQSVC 17:44 → CANRESERV 21:51 → ENRESERV 21:51 → EDBEDREQSVC 22:09 → EDBEDREQTM 22:09 → CANRESERV 22:38 → ENRESERV 22:38 → EDBEDREQSVC 23:05 → ENRESERV 23:18 → 5EST 01-06 02:15 → 7WST 01-09 02:01 → MICUNO 01-16 14:11
PROVIDERS: ADMIT Internal Medicine; ATTEND Internal Medicine
PROC: 5A09357 Assistance with Respiratory Ventilation, Less than 24 Consecutive Hours, Continuous Positive Airway Pressure (ICD-10-PCS; principal; 2024-12-31)
PROC: 5A1955Z Respiratory Ventilation, Greater than 96 Consecutive Hours (ICD-10-PCS; 2024-12-31)
PROC: 0BH17EZ Insertion of Endotracheal Airway into Trachea, Via Natural or Artificial Opening (ICD-10-PCS; 2024-12-31)
PROC: 05H533Z Insertion of Infusion Device into Right Subclavian Vein, Percutaneous Approach (ICD-10-PCS; 2024-12-31)
PROC: B546ZZA Ultrasonography of Right Subclavian Vein, Guidance (ICD-10-PCS; 2024-12-31)
PROC: 0DB78ZX Excision of Stomach, Pylorus, Via Natural or Artificial Opening Endoscopic, Diagnostic (ICD-10-PCS; 2025-01-11)
PROC: 0DH63UZ Insertion of Feeding Device into Stomach, Percutaneous Approach (ICD-10-PCS; 2025-01-11)
PROC: 5A09357 Assistance with Respiratory Ventilation, Less than 24 Consecutive Hours, Continuous Positive Airway Pressure (ICD-10-PCS; 2025-01-16)
PROC: 0BH17EZ Insertion of Endotracheal Airway into Trachea, Via Natural or Artificial Opening (ICD-10-PCS; 2025-01-17)
PROC: 5A1955Z Respiratory Ventilation, Greater than 96 Consecutive Hours (ICD-10-PCS; 2025-01-17)
PROC: 30243N1 Transfusion of Nonautologous Red Blood Cells into Central Vein, Percutaneous Approach (ICD-10-PCS; 2025-01-18)
PROC: 5A1D70Z Performance of Urinary Filtration, Intermittent, Less than 6 Hours Per Day (ICD-10-PCS; 2025-01-20)
PROC: 02HV33Z Insertion of Infusion Device into Superior Vena Cava, Percutaneous Approach (ICD-10-PCS; 2025-01-20)
PROC: B548ZZA Ultrasonography of Superior Vena Cava, Guidance (ICD-10-PCS; 2025-01-20)
PROC: 30243K1 Transfusion of Nonautologous Frozen Plasma into Central Vein, Percutaneous Approach (ICD-10-PCS; 2025-01-21)
PROC: 6A551Z2 Pheresis of Platelets, Multiple (ICD-10-PCS; 2025-01-21)
PROC: 5A1D70Z Performance of Urinary Filtration, Intermittent, Less than 6 Hours Per Day (ICD-10-PCS; 2025-01-22)
PROC: 5A1D70Z Performance of Urinary Filtration, Intermittent, Less than 6 Hours Per Day (ICD-10-PCS; 2025-01-24)
PROC: 5A1D70Z Performance of Urinary Filtration, Intermittent, Less than 6 Hours Per Day (ICD-10-PCS; 2025-01-26)
PROC: 5A1D70Z Performance of Urinary Filtration, Intermittent, Less than 6 Hours Per Day (ICD-10-PCS; 2025-01-28)
PROC: 5A1D70Z Performance of Urinary Filtration, Intermittent, Less than 6 Hours Per Day (ICD-10-PCS; 2025-01-30)
PROC: 5A1D70Z Performance of Urinary Filtration, Intermittent, Less than 6 Hours Per Day (ICD-10-PCS; 2025-02-01)
DX: A41.9 Sepsis, unspecified organism (principal); L89.893 Pressure ulcer of other site, stage 3; J15.69 Pneumonia due to other Gram-negative bacteria; J69.0 Pneumonitis due to inhalation of food and vomit; J96.01 Acute respiratory failure with hypoxia; J96.02 Acute respiratory failure with hypercapnia; N17.0 Acute kidney failure with tubular necrosis; R65.21 Severe sepsis with septic shock; G93.40 Encephalopathy, unspecified; I82.431 Acute embolism and thrombosis of right popliteal vein; D61.818 Other pancytopenia; J44.0 Chronic obstructive pulmonary disease with (acute) lower respiratory infection; N39.0 Urinary tract infection, site not specified; J90 Pleural effusion, not elsewhere classified; R64 Cachexia; N18.9 Chronic kidney disease, unspecified; K25.9 Gastric ulcer, unspecified as acute or chronic, without hemorrhage or perforation; D50.9 Iron deficiency anemia, unspecified; R56.9 Unspecified convulsions; M62.82 Rhabdomyolysis; E87.20 Acidosis, unspecified; E87.0 Hyperosmolality and hypernatremia; E46 Unspecified protein-calorie malnutrition; T82.838A Hemorrhage due to vascular prosthetic devices, implants and grafts, initial encounter; R62.7 Adult failure to thrive; L89.156 Pressure-induced deep tissue damage of sacral region; R00.1 Bradycardia, unspecified; L22 Diaper dermatitis; E86.9 Volume depletion, unspecified; K29.70 Gastritis, unspecified, without bleeding; K44.9 Diaphragmatic hernia without obstruction or gangrene; L89.326 Pressure-induced deep tissue damage of left buttock; L89.316 Pressure-induced deep tissue damage of right buttock; R13.10 Dysphagia, unspecified; N40.2 Nodular prostate without lower urinary tract symptoms; L98.8 Other specified disorders of the skin and subcutaneous tissue; R04.0 Epistaxis; E87.5 Hyperkalemia; Z66 Do not resuscitate; R74.01 Elevation of levels of liver transaminase levels; E83.42 Hypomagnesemia; E16.2 Hypoglycemia, unspecified; Z51.5 Encounter for palliative care; Z86.73 Personal history of transient ischemic attack (TIA), and cerebral infarction without residual deficits; Z93.1 Gastrostomy status; Z68.29 Body mass index [BMI] 29.0-29.9, adult; Z22.322 Carrier or suspected carrier of Methicillin resistant Staphylococcus aureus; Z74.01 Bed confinement status
CPT/HCPCS: 31500; 31720; 36415; 36556; 36573; 36600; 71045; 74018; 74174; 76770; 77001; 78278; 80048; 80053; 80061; 80076; 80202; 80305; 80320; 81003; 82140; 82270; 82375; 82533; 82550; 82607; 82728; 82746; 82805; 82962; 83036; 83540; 83550; 83605; 83615; 83735; 83880; 84100; 84145; 84443; 84478; 84484; 84550; 85014; 85018; 85025; 85027; 85044; 85384; 86705; 86709; 86850; 86900; 86920; 86927; 87070; 87077; 87186; 87340; 88305; 88312; 88313; 90935; 92610; 93005; 93308; 93922; 93970; 93971; 94002; 94003; 94070; 94640; 94660; 94664; 96365; 98960; 99291; A4606; A4615; A6261; A9560; C1725; C1752; C1769; J0360; J0456; J0612; J0690; J0692; J0696; J1265; J1630; J1650; J1720; J1815; J1953; J2003; J2185; J2250; J2354; J2371; J2470; J2543; J2597; J2704; J2765; J3010; J3373; J3430; J3475; J3490; J7030; J7040; J7042; J7050; J7060; J7070; J7608; P9016; P9017; P9034; P9041; Q9967; A5200; G0480